=== PATIENT | female | born 1985 | race Caucasian/White ===

== ENCOUNTER → 2021-09-03 09:57 | Outpatient (CLI) | payer BC, SELFPAY ==
--- NOTE | ~2021-09-03 | US_ITS ---
EXAMINATION: US OB follow up DATE: 09/03/2021 10:23 INDICATION: Gestational diabetes, growth assessment during third trimester TECHNIQUE: Real-time ultrasound of the pelvis was performed. The interpreting radiologist was not pre sent for the study. COMPARISON: None. FINDINGS: There is a single living fetus in vertex presentation. The placenta is fundal/posterior. Fe ankush cardiac activity and movement are noted. heart rate is 136 beats per minute (bpm). Th e amniotic fluid index is 12.5 cm which is normal (normal range: 8.1 cm to 24.8 cm). The following biometric data were obtained: Biparietal diameter (BPD): 9.0 cm; head circumference (HC): 32.6 cm; abdominal circumference (AC): 32 .8 cm; femur length (FL): 6.7 cm. These measurements are concordant. Estimated weight is 2876 g +/- 431 g, which correlates with the 86th percentile when 10/10/2021 i s used as estimated date of delivery. As single measurements, these parameters are each equal to the following estimated gestational ages w ith ranges of +/- 2 standard deviations: BPD: 36 weeks 3 days ( 33 weeks 2 days - 39 weeks 5 days). HC: 37 weeks 1 days ( 34 weeks 3 days - 39 weeks 5 days). AC: 36 weeks 5 days ( 33 weeks 5 days - 39 weeks 6 days). FL: 34 weeks 4 days ( 31 weeks 4 days - 37 weeks 4 days). estimated gestational age based solely on measurements from this exam is 36 weeks 2 days +/- 2 weeks 4 days. IMPRESSION: 1. Single living fetus in vertex presentation. 2. Normal amniotic fluid index. 3. Estimated weight is 2876 g +/- 431 g, which correlates with the 86th percentile when 2 is used as estimated date of delivery. Reviewed, dictated and finalized at location F. ORTHINESS SAFETY INSPECTOR IMPRESSION: 1. Single living fetus in vertex presentation. 2. Normal amniotic fluid index. 3. Estimated weight is 2876 g +/- 431 g, which correlates with the 86th p ercentile when 10/10/2021 is used as estimated date of delivery.
== END ==
PROVIDERS: Visit Provider Obstetrics & Gynecology Gynecology
DX: Z36.89 Encounter for other specified antenatal screening (principal)
CPT/HCPCS: 76816

== ENCOUNTER 2021-09-29 17:21 | Outpatient (RCR) | payer BC, SELFPAY ==
[2021-08-18 19:37] VITALS: BP 130/68; PULSE 85
[2021-08-22 18:57] VITALS: BP 120/68; PULSE 87
[2021-08-25 14:48] VITALS: BP 133/61; PULSE 78
[2021-08-29 16:15] VITALS: BP 124/71; PULSE 93
[2021-08-29 16:20] VITALS: BP 124/71; PULSE 96
[2021-09-01 16:52] VITALS: BP 121/70; PULSE 85
[2021-09-08 18:54] VITALS: BP 124/79; PULSE 91
[2021-09-15 17:34] VITALS: BP 123/67; PULSE 95
[2021-09-19 17:40] VITALS: BP 119/69; PULSE 93
[2021-09-22 17:39] VITALS: BP 131/82; PULSE 81
[2021-09-26 17:43] VITALS: BP 117/64; PULSE 86
[2021-09-29 17:57] VITALS: BP 124/73; PULSE 81
== END 2021-10-15 13:12 | disposition home or self-care (01) ==
LOC: ANHOBOP 17:21
PROVIDERS: PCP Family Medicine; Visit Provider Obstetrics & Gynecology Gynecology
DX: O24.419 Gestational diabetes mellitus in pregnancy, unspecified control (principal); Z3A.32 32 weeks gestation of pregnancy; Z3A.33 33 weeks gestation of pregnancy; Z3A.34 34 weeks gestation of pregnancy; Z3A.35 35 weeks gestation of pregnancy; Z3A.36 36 weeks gestation of pregnancy; Z3A.37 37 weeks gestation of pregnancy; Z3A.38 38 weeks gestation of pregnancy
CPT/HCPCS: 59025

== ENCOUNTER 2021-10-03 01:59 | Inpatient (IN) | payer BC, SELFPAY ==
[2021-10-03] VITALS (83 sets, daily range): BP systolic 105–147; BP diastolic 55–114; PULSE 68–106; RESP 18–20; TEMP 36.7–37.2; O2SAT 91–100; BMI 29.5
[2021-10-03 02:37] LABS: Glucose Point of Care 81 mg/dl (65-105)
[2021-10-03 02:39] LABS: Basophils Percent Auto 0.3 % (0.2-1.2); Eosinophils Absolute Auto 0.1 K/mm3 (0-0.3); Eosinophils Percent Auto 0.8 % (0-4.4); Hematocrit 39.1 % (37.0-47.0); Hemoglobin 13.5 g/dL (12.0-15.0); Immature Granulocyte Absolute 0.06 K/mm3 (0.00-0.031); Immature Granulocyte Percent A 0.6 % (0-0.5); Lymphocytes Absolute Auto 2.44 K/mm3 (0.9-3.2); Mean Corpuscular HGB Conc 34.5 g/dl (32-36); Mean Corpuscular Hemoglobin 33.3 pg (26-34); Mean Corpuscular Volume 96.5 fl (80-100); Mean Platelet Volume 10.2 fl (7.4-10.4); Monocytes Absolute Auto 0.9 K/mm3 (0.1-0.6); Neutrophils Absolute Auto 7.1 K/mm3 (1.3-6.7); Neutrophils Percent Auto 67.3 % (45.5-73.1); Platelet Count Result 228 k/mm3 (150-375); Red Blood Count 4.05 M/mm3 (4.2-5.4); Red Cell Distribution Width 12.9 % (11.5-14.5); White Blood Count 10.6 K/mm3 (4.5-10.0)
[2021-10-03] MEDS: LACTATED RINGERS 1,000 ML 125 ML IV CONT ×3 (02:40→06:21)
--- NOTE | 2021-10-03 03:21 | WPDANESEPP ---
Anes - Eval Pre Procedure Date/Time: 10/03/21 03:21 Pre Op Diagnosis: Induction Patient Data Age: 35 Gender: F Height: 1.68 m Weight: 83 kg Last Vital Signs Pulse 82 10/03/21 02:15 BP 144/88 H 10/03/21 02:15 Pulse Ox 100 10/03/21 03:21 Allergies Allergy/AdvReac Type Severity Reaction Status Date / Time No Known Allergies Allergy Verified 10/03/21 02:41 Home Medications Medication Instructions Recorded Confirmed Type PNV cmb#95-ferrous fumarate-FA 1 tablet PO DAILY 05/10/19 10/03/21 History [] cholecalciferol (vitamin D3) 5,000 unit PO DAILY 05/10/19 10/03/21 History [Vitamin D3] omega 5-hvp-wbe-fish oil [Fish Oil] 1 cap PO DAILY 05/10/19 10/03/21 History folic acid 1 mg tablet 1 mg PO DAILY 03/07/21 10/03/21 History aspirin [Baby Aspirin] 81 mg PO DAILY 09/15/21 10/03/21 History insulin NPH human semi-syn 24 unit SUBCUT HS 09/15/21 10/03/21 History [Novolin N (Semi-Synthetic)] insulin aspart U-100 [Novolog 11 unit SUBCUT QACDINNER 09/15/21 10/03/21 History U-100 Insulin aspart] Laboratory Tests 10/03/21 10/03/21 10/03/21 02:22 02:30 02:30 WBC 10.6 K/mm3 H K/mm3 (4.5-10.0) RBC 4.05 M/mm3 L M/mm3 (4.2-5.4) Hgb 13.5 g/dL g/dL (12.0-15.0) Hct 39.1 % % (37.0-47.0) MCV 96.5 fl fl (80-100) MCH 33.3 pg pg (26-34) MCHC 34.5 g/dl g/dl (32-36) RDW 12.9 % % (11.5-14.5) Plt Count 228 k/mm3 k/mm3 (150-375) MPV 10.2 fl fl (7.4-10.4) Immature Gran % (Auto) 0.6 % H % (0-0.5) Neut % (Auto) 67.3 % % (45.5-73.1) Lymph % (Auto) 23.0 % % (18.3-44.2) [place] % (Auto) 8.0 % % (2.6-8.5) Eos % (Auto) 0.8 % % (0-4.4) Baso % (Auto) 0.3 % % (0.2-1.2) Lymph # (Auto) 2.44 K/mm3 K/mm3 (0.9-3.2) [place] # (Auto) 0.9 K/mm3 H K/mm3 (0.1-0.6) Eos # (Auto) 0.1 K/mm3 K/mm3 (0-0.3) Baso # (Auto) 0.0 K/mm3 K/mm3 (0.0-0.1) Abs Immat Gran (auto) 0.06 K/mm3 H K/mm3 (0.00-0.031) Absolute Neuts (auto) 7.1 K/mm3 H K/mm3 (1.3-6.7) Absolute Nucleated RBC 0.0 K/mm3 K/mm3 (0.0-0.012) Nucleated RBC % 0.0 % % (0.0-0.2) POC Capillary Glucose 81 mg/dl mg/dl (65-105) RPR Pending Patient hx anesthesia problems: none Family hx anesthesia problems: none Results Review: All pre-operative results and documents have been reviewed as part of the pre-operative evaluation. [facility] Past Medical History Medical History Gestational diabetes mellitus (GDM) History of asthma History of gestational diabetes Major depressive disorder in full remission Scoliosis of lumbar spine Vitamin D deficiency Surgical History Surgical History [place] teeth extracted 01/2008 Family History Family History Mother Dementia Asthma Sibling Asthma Grandparent Heart attack Father Heart problem Grandparent Ovarian cancer Grandparent Acute rheumatic heart disease Social History Social History Smoking status: Never smoker Second hand tobacco smoke exposure: No Alcohol intake: current Substance use: never Substance use type: does not use Gender identity (if verbalized by the patient): Female Spiritual care concerns: No Exam Day of Procedure 10/03/21 03:21 Patient weight: overweight Heart: regular rate and rhythm Lungs: clear to auscultation Airway: Mallampati scale class II Neurological: alert and oriented
--- NOTE | 2021-10-03 04:52 | LDADM ---
This patient, Love Hernandez, was admitted to Labor/Delivery/Recovery 104 on 10/03/21 at 01:59. Plans for labor, pain management and were discussed with patient. Patient/family oriented to hospital policies and general routines including ID bracelet, bed and alarms, visiting hours, pain management, procedures, bathroom and other care routines, personal items, smoking policy, room service/diet and guest tray routines, infant security routines, and visiting hours. Patient/Family are encouraged to report perceived risks to care and to ask questions if they do not understand what they are told or what they should do. See OBIX for further documentation.
[2021-10-03 06:34] LABS: Glucose Point of Care 111 mg/dl (65-105)
--- NOTE | 2021-10-03 06:38 | WPDOBADMIT ---
Obstetrics - Admit Note Admission Note: record reviewed. No pertinent additions to the history and/or any subsequent changes in the physical findings that are not consistent with the expected course of the were found. Additions to the history and/or subsequent changes in the physical findings follow. None. Here with SROM in labor. Now complete and starting to push.
--- NOTE | 2021-10-03 07:03 | PM.OBPRVD ---
OB - Delivery Note Procedure Delivery date: 10/03/21 Procedure: Events: Gestational Diabetes (A2) and Other (Covid+ in ) Induction method: None Delivery augmentation: Pitocin Delivery monitor: External FHT and External Uterine Route of delivery: Laceration Description: Perineal - 2nd Degree Delivery repair: vicryl (2-0) Specimen: No Quantitative Blood Loss (ml): 100 Anesthesia type: Epidural Disposition: Floor Baby Date of : 10/03/21 Weeks of gestation at delivery: 39 Infant gender: Male presentation: vertex position: Right Occiput Anterior Placenta delivery description: Spontaneous Cord Vessel Description: 3 Vessels score one minute: 9 score five minutes: 9
--- NOTE | 2021-10-03 07:05 | PM.OBDSVD ---
DS: Admitting Diagnosis Discharge Date 10/04/21 Admitting Diagnosis IUP 39 wks with SROM in labor GDMA2 Covid + in DS: Discharge Diagnosis Discharge Diagnosis (1) Gestational diabetes mellitus (GDM): Code(s): O24.419 - Gestational diabetes mellitus in , unspecified control Status: Acute Assessment and Plan: A2 (2) (normal spontaneous vaginal delivery): Code(s): O80 - Encounter for full-term uncomplicated delivery Status: Acute OB - DS: Summary OB Procedures : NST and Ultrasound OB Procedures Intrapartum: Spontaneous Vag Delivery OB Procedures: : None Peripartum Data Infant Delivery Method: Natural Vaginal Laceration Description: Perineal - 2nd Degree complications: none Status at Discharge Functional status at discharge: independent ambulation Overall status at discharge: patient is progressing back to baseline Time Spent with Patient Time attestation: Total time spent providing and/or coordinating discharge services: DS: Data Data Completed and Pending Labs on day of discharge: Labs from last 24 hours 10/03/21 10/03/21 10/03/21 06:27 02:30 02:30 WBC RBC Hgb Hct MCV MCH MCHC RDW Plt Count MPV Immature Gran % (Auto) Neut % (Auto) Lymph % (Auto) [place] % (Auto) Eos % (Auto) Baso % (Auto) Lymph # (Auto) [place] # (Auto) Eos # (Auto) Baso # (Auto) Abs Immat Gran (auto) Absolute Neuts (auto) Absolute Nucleated RBC Nucleated RBC % POC Capillary Glucose 111 H RPR Pending Blood Type O Positive Antibody Screen Negative 10/03/21 10/03/21 02:30 02:22 WBC 10.6 H RBC 4.05 L Hgb 13.5 Hct 39.1 MCV 96.5 MCH 33.3 MCHC 34.5 RDW 12.9 Plt Count 228 MPV 10.2 Immature Gran % (Auto) 0.6 H Neut % (Auto) 67.3 Lymph % (Auto) 23.0 [place] % (Auto) 8.0 Eos % (Auto) 0.8 Baso % (Auto) 0.3 Lymph # (Auto) 2.44 [place] # (Auto) 0.9 H Eos # (Auto) 0.1 Baso # (Auto) 0.0 Abs Immat Gran (auto) 0.06 H Absolute Neuts (auto) 7.1 H Absolute Nucleated RBC 0.0 Nucleated RBC % 0.0 POC Capillary Glucose 81 RPR Blood Type Antibody Screen Discharge Plan Discharge Attending physician on discharge: Natalie Guzman Discharging Clinician: Natalie Guzman Anticipated Discharge Date/Time: 10/05/21 07:06 Patient Disposition: Home, Self-Care Activity: may shower and pelvic rest Diet: regular Patient Instructions: Antibiotic Form Stand Alone Forms: General Discharge Information Follow-up/Referrals: Natalie Guzman MD [Physician] - 6 Weeks Discharge Medications: Continued PNV cmb#95-ferrous fumarate-FA [] 28 mg iron- 800 mcg Tablet 1 tablet PO DAILY RF: 0 cholecalciferol (vitamin D3) [Vitamin D3] 5,000 unit Tablet 5,000 unit PO DAILY RF: 0 omega 6-mmy-vyn-fish oil [Fish Oil] 1,000 mg (120 mg-180 mg) Capsule 1 cap PO DAILY RF: 0 Discontinued folic acid 1 mg tablet 1 mg PO DAILY RF: 0 insulin aspart U-100 [Novolog U-100 Insulin aspart] 100 unit/mL Solution 11 unit SUBCUT QACDINNER RF: 0 aspirin [Baby Aspirin] 81 mg Tablet,Chewable 81 mg PO DAILY RF: 0 Novolin N (Semi-Synthetic) 100 unit/mL Suspension 24 unit SUBCUT HS RF: 0 Date of admission: 10/03/21 01:59 Primary Care Provider: UNKNOWN,DOCTOR Admitting Provider: Natalie Guzman Attending physician on admission: Natalie Guzman Condition: Stable
[2021-10-03] MEDS: OXYTOCIN 30 UNITS/NS 500 ML 30 UNITS/500 ML BAG 125 UNITS IV CONT (07:14)
--- NOTE | 2021-10-03 10:27 | OBPPTRN ---
Patient transferred to post room #291 via wheelchair. Support person present. Oriented to unit, room, information board, rooming in, admission packet and security measures. Patient verbalizes understanding.
[2021-10-03] MEDS: ACETAMINOPHEN 325 MG TABLET 650 MG PO (12:02)
[2021-10-03 13:00] LABS: Rapid Plasma Reagin Non-Reactive (NonReactive)
--- NOTE | 2021-10-03 14:40 | PC.NURSE ---
[id number] Reported to RN that mother wants to pump and feed her . Introductions were made and consulted with patient to assess needs related to . Mother led conversation with her experience with feeding baby so far and her plan to breastfeed. Mother works well with her . Reviewed good handwashing when working with infant, breast, nipples and how to protect the nipples with a deep latch. Encouraged understanding the benefits of skin to skin, responding to feeding cues, frequencies of feeding 8-12 times in 24 hours (approximately 2-3 hours), duration of feedings, milk production, intake/output feeding sheet and signs of adequate intake. Discussed stimulating infant with skin to skin, hand expressing colostrum, touch and talking to to encourage eating at the breast. Reviewed positioning and alignment, supporting breast, off-centered (asymmetrical latch) and leading with the chin with big open wide gape. is sleepy and reluctant. Mother hand expressed colostrum and finger fed to her infant. Nipple care reviewed, comfort and healing with warm, wet washcloth to rinse breast and leave to air-dry, or colostrum may be left on nipples to dry but have clean hands when touching the nipple/breast. Resources used to facilitate learning were used from the visual handout/ tool/mom and baby guide. Mother voiced understanding responding to feeding cues, may need to stimulating infant approximately 2-3 hours from the start of the last feeding, calling for assistance if the does not latch or there discomfort . Reported to primary RN. 1217 - Parents called RN to the room related to has not shown feeding cues to breastfeed yet since 0715. Mother hand expressed colostrum and RN 1.3 ml syringe fed . Infant remains sleepy and reluctant. Parents are encouraged to practice skin to skin, hand expression, stimulating infant 8-12 times in a 24 hour period to encourage . Parents voiced understanding to call if infant doesn't latch or there's discomfort with latching infant to the breast. Reported to primary RN.
[2021-10-03] MEDS: IBUPROFEN 600 MG TABLET PO (16:16)
[2021-10-03] MEDS: WITCH HAZEL 40 PADS 1 PAD TOPICAL (16:26)
[2021-10-03] MEDS: BENZOCAINE 20% AER SPR (*SP) 56 GM CAN 1 SPRAY TOPICAL (16:26)
[2021-10-04 02:25] VITALS: BP 129/76; PULSE 81; RESP 20; TEMP 36.6
[2021-10-04 05:41] LABS: Hematocrit 33.2 % (37.0-47.0); Hemoglobin 11.3 g/dL (12.0-15.0)
--- NOTE | 2021-10-04 07:56 | PM.OBPNVD ---
OB - PN: Subj Subjective Date/time seen: 10/04/21 07:56 Patient comments: no complaints and pain well controlled baby status: doing well OB - PN: Obj Data Labs CBC & Chem 7: 10/04/21 05:05 Labs: Laboratory Results - last 24 hr 10/03/21 10/04/21 02:30 05:05 Hgb 11.3 L Hct 33.2 L RPR Non-reactive OB - PN A/P Plan day: 1 Plan: routine care, discharge home, follow up 6 weeks and other (plans paragard) Time Spent With Patient Time: Total time spent is greater than 50% in coordination of care (as documented) at patient's floor/unit and/or counseling patient: Exam : Bimanual exam- vagina & uterus: other (Uterus firm, nt @U)
[2021-10-04 08:05] VITALS: BP 104/63; PULSE 94; RESP 18; TEMP 36.7; O2SAT 98
--- NOTE | 2021-10-04 10:00 | WPDANLDPN2 ---
Anes-Prog Note L&D Date/Time: 10/04/21 10:00 Comfortable throughout: labor and delivery Neuraxial method: epidural Epidural/Spinal procedure site: clean & non-tender Neuro status: Neuro function grossly intact. Cardiovascular status: normal Respiratory status: normal Airway patency: baseline Mental status: baseline Post-Op hydration status: normal Vital Signs: Last Vital Signs Temp 98.1 F 10/04/21 08:05 Pulse 94 10/04/21 08:05 Resp 18 10/04/21 08:05 BP 104/63 10/04/21 08:05 Pulse Ox 98 10/04/21 08:05 Pain score (VAS): 0 I/O: Intake & Output 10/03/21 10/04/21 10/04/21 23:59 07:59 15:59 Intake Total 240 Balance 240 Post-procedural complaints: none Patient feedback: Patient satisfied with anesthetic care.
[2021-10-04] MEDS: DOCUSATE SODIUM 100 MG CAPSULE PO (10:02)
[2021-10-04] MEDS: MULTIVIT/MIN/PREN/FOL AC/IRON TABLET 1 TAB PO (10:02)
--- NOTE | 2021-10-04 17:14 | PC.NURSE ---
1030 - Consulted with patient, reviewed infant feeding cues, frequencies, duration of feedings, feeding elimination flow sheet, and signs of adequate intake. Demonstrated stimulation techniques to wake infant for feeding. Assisted with infant to breast. Reviewed positioning/alignment, holding breast and asymmetrical latch on. was unable to latch correctly and father of baby was feeding colostrum with a syringe. Reviewed signs of a correct latch, effective nursing and suck swallow ratio. Nipple care reviewed with optimal latching and good positioning. Mother voiced understanding to call out for RN assistance if she is unable to latch infant for feeding or she has discomfort with nursing. Parent voiced understanding of responsive feeding watching for feeding cues and stimulating infant to breastfeed if it has been 3 hours since the infant last fed. Reported to primary RN.
[2021-10-05 07:52] VITALS: BP 133/79; PULSE 79; RESP 16; TEMP 36.9; O2SAT 97
== END 2021-10-04 16:36 | disposition home or self-care (01) | DRG 807 ==
LOC: ANHLDR 07:06 → ANHOB2 10:28
PROVIDERS: Admitting Provider Obstetrics & Gynecology Gynecology; Visit Provider Obstetrics & Gynecology Gynecology
DX: O24.429 Gestational diabetes mellitus in childbirth, unspecified control (principal); Z37.0 Single live birth; Z3A.39 39 weeks gestation of pregnancy; O70.1 Second degree perineal laceration during delivery; O99.892 Other specified diseases and conditions complicating childbirth; M41.9 Scoliosis, unspecified; Z86.16 Personal history of COVID-19
CPT/HCPCS: 36415; 82948; 85014; 85018; 85025; 86592; 86850; 86900; 86901; A9270; J2590; J2795; J7120

== ENCOUNTER 2023-02-05 17:13 | Outpatient (RCR) | payer BC, SELFPAY | END 2023-05-06 23:59 | disposition home or self-care (01) | LOC: ANHLAB 17:13 | PROVIDERS: Visit Provider Obstetrics & Gynecology Gynecology | DX: O26.21 Pregnancy care for patient with recurrent pregnancy loss, first trimester (principal); Z3A.00 Weeks of gestation of pregnancy not specified | CPT/HCPCS: 36415; 84702 ==

== ENCOUNTER → 2023-02-17 09:49 | Outpatient (CLI) | payer BC, SELFPAY ==
--- NOTE | ~2023-02-17 | US_ITS ---
EXAMINATION: US OB <= 14 weeks fetus DATE: 02/17/2023 10:11 INDICATION: Uncertain dates. . TECHNIQUE: Real-time transabdominal pelvic ultrasound was performed. COMPARISON: None. FINDINGS: The uterus measures 10.9 x 6.5 x 9.5 cm. There is an intrauterine gestational sac. A yolk sac is iden tified. The crown rump length measures 1.7 cm, which correlates with an estimated gestational age of 8 weeks and 0 day(s) (+/-) 5 day(s). heart motion is identified measuring 160 beats per minute (bpm) by M-mode Doppler. The right ovary measures 2.8 x 2.4 x 3.0 cm. The left ovary is not vi sualized. There is no free fluid in the pelvis. IMPRESSION: 1. Single living intrauterine gestation with estimated date of delivery of 09/29/2023. Reviewed, dictated and finalized at location E. IMPRESSION: 1. Single living intrauterine gestation with estimated date of delivery of 09/07.
== END ==
PROVIDERS: PCP Obstetrics & Gynecology Gynecology; Visit Provider Obstetrics & Gynecology Gynecology
DX: Z36.87 Encounter for antenatal screening for uncertain dates (principal); Z3A.08 8 weeks gestation of pregnancy
CPT/HCPCS: 76801

== ENCOUNTER 2023-03-28 17:08 | Outpatient (CLI) | payer BC, SELFPAY ==
[2023-03-28 17:58] LABS: Basophils Percent Auto 0.3 % (0.2-1.2); Eosinophils Absolute Auto 0.1 K/mm3 (0-0.3); Eosinophils Percent Auto 1.4 % (0-4.4); Hemoglobin 11.6 g/dL (12.0-15.0); Immature Granulocyte Absolute 0.02 K/mm3 (0.00-0.031); Immature Granulocyte Percent A 0.3 % (0-0.5); Lymphocytes Absolute Auto 1.96 K/mm3 (0.9-3.2); Lymphocytes Percent Auto 33.4 % (18.3-44.2); Mean Corpuscular HGB Conc 35.2 g/dl (32-36); Mean Corpuscular Hemoglobin 32.8 pg (26-34); Mean Corpuscular Volume 93.2 fl (80-100); Mean Platelet Volume 9.8 fl (7.4-10.4); Monocytes Absolute Auto 0.4 K/mm3 (0.1-0.6); Monocytes Percent Auto 7.3 % (2.6-8.5); Neutrophils Absolute Auto 3.4 K/mm3 (1.3-6.7); Neutrophils Percent Auto 57.3 % (45.5-73.1); Platelet Count Result 261 k/mm3 (150-375); Red Blood Count 3.54 M/mm3 (4.2-5.4); Red Cell Distribution Width 12.3 % (11.5-14.5); White Blood Count 5.9 K/mm3 (4.5-10.0)
[2023-03-28 18:39] LABS: Vitamin D 25 Hydroxy 73.9 ng/mL
[2023-03-28 18:50] LABS: HIV 1/2 Ab P24 Ag Result Negative (Negative)
[2023-03-28 19:03] LABS: Hepatitis B Surface Antigen Negative (Negative); Rubella IgG Antibody 37.7 IU/ML
[2023-03-28 19:06] LABS: Hepatitis C Virus Antibody Negative (Negative)
[2023-03-28 23:08] LABS: Hemoglobin A1C 4.8 % (<5.7)
[2023-03-29 15:39] LABS: Rapid Plasma Reagin Non-Reactive (NonReactive)
== END 2023-03-28 17:09 | disposition home or self-care (01) ==
LOC: ANHLAB 17:10
PROVIDERS: PCP Obstetrics & Gynecology Gynecology; Visit Provider Advanced Practice Midwife
DX: Z36.9 Encounter for antenatal screening, unspecified (principal); Z3A.00 Weeks of gestation of pregnancy not specified
CPT/HCPCS: 36415; 82306; 82728; 83036; 85025; 86592; 86703; 86762; 86803; 86850; 86900; 86901; 87340; G0432

== ENCOUNTER 2023-08-24 20:17 | Inpatient (IN) | payer BC, SELFPAY ==
[2023-08-07 16:52] VITALS: BP 119/69; PULSE 96
[2023-08-11 10:33] VITALS: BP 114/80; PULSE 105
--- NOTE | 2023-08-14 17:47 | PC.NURSE ---
called Dr. Guzman reported pt is here for routine NST and undetermined baseline with questionable decel. order received for BPP and SADIA.
[2023-08-14 18:58] VITALS: BP 123/70; PULSE 90
[2023-08-17 18:24] VITALS: BP 122/64; PULSE 93
[2023-08-21 17:51] VITALS: BP 120/71; PULSE 95
--- NOTE | ~2023-08-24 | US_ITS ---
EXAMINATION: US OB limited w BPP DATE: 09/09/2023 23:41 INDICATION: well-being. Third trimester. TECHNIQUE: Real-time pelvic ultrasound was performed. COMPARISON: None. FINDINGS: There is a single living fetus in vertex presentation. The placenta is anterior. heart rate is 133 beats per minute (bpm). The amniotic fluid volume is subjectively normal. Biophysical profile performed by the technologist: breathing (30 sec sustained breathing in 30 minutes): 0 out of 2 movement (3 gross body movements in 30 minutes): 2 out of 2 tone (one episode of wvfgdjr-kyuvdzhex-zidmfms limb movement): 2 out of 2 Amniotic fluid pocket (2 cm): 2 out of 2 Total score: 6 out of 8 IMPRESSION: 1. Single living fetus in vertex presentation. 2. Biophysical profile 6 out of 8. Reviewed, dictated and finalized at location E. COMPOUNDER
--- NOTE | ~2023-08-24 | US_ITS ---
EXAMINATION: US OB limited w BPP DATE: 08/14/2023 18:49 INDICATION: QUESTIONABLE DECELS . TECHNIQUE: Real-time ultrasound of the pelvis was performed. COMPARISON: None. FINDINGS: There is a single living fetus in upper back/spine (shoulder) presentation, transverse lie. The plac enta is anterior, well distant from the cervix which is closed and measures 4.9 cm. heart rate is 126 bpm. The amniotic fluid index is 20.8 cm, which is normal (5th to 95th percentile is 8.3 to 24 .5 cm). Biophysical profile performed by the technologist: breathing (30 sec sustained breathing in 30 minutes): 2 out of 2. movement (3 gross body movements in 30 minutes: 2 out of 2. tone (one episode of wqindkm-fwxgxbjod-kvxpliz limb movement): 2 out of 2. Amniotic fluid pocket (2 cm): 2 out of 2. Total score: 8 out of 8. IMPRESSION: Single living fetus in shoulder presentation, transverse lie. Biophysical profile 8 out of 8. Reviewed, dictated and finalized at location K. L FILER
--- NOTE | ~2023-08-24 | US_ITS ---
EXAMINATION: US OB BPP wo non-stress DATE: 08/24/2023 18:59 INDICATION: deceleration; Add SADIA please . TECHNIQUE: Real-time ultrasound of the pelvis was performed. COMPARISON: None. FINDINGS: There is a single living fetus in vertex presentation, longitudinal lie. The placenta is anterior/ri ght. heart rate is 136 bpm. The amniotic fluid index is 10.8 cm, which is normal (5th to 95th p ercentile is 8.1 to 24.8 cm). Biophysical profile performed by the technologist: breathing (30 sec sustained breathing in 30 minutes): 0 out of 2. movement (3 gross body movements in 30 minutes: 2 out of 2. tone (one episode of kyoszdm-pxpwpiyyh-qmyhpnj limb movement): 2 out of 2. Amniotic fluid pocket (2 cm): 2 out of 2. Total score: 8 out of 8. IMPRESSION: Single living fetus in vertex presentation. Biophysical profile 6 out of 8. . Reviewed, dictated and finalized at location K. ING ANALYST
--- NOTE | ~2023-08-24 | US_ITS ---
EXAMINATION: US OB BPP wo non-stress DATE: 09/09/2023 11:19 INDICATION: Decelerations. Third trimester. TECHNIQUE: Real-time ultrasound of the pelvis was performed. COMPARISON: Ultrasound 09/08/2023 FINDINGS: There is a single living fetus in vertex presentation. The placenta is anterior. heart rate is 145 beats per minute (bpm). The amniotic fluid index is 12.0 cm, which is normal. Biophysical profile performed by the technologist: breathing (30 sec sustained breathing in 30 minutes): 2 out of 2 movement (3 gross body movements in 30 minutes): 2 out of 2 tone (one episode of rwsvcfp-gupupyydh-bjswzpe limb movement): 2 out of 2 Amniotic fluid pocket (2 cm): 2 out of 2 Total score: 8 out of 8 IMPRESSION: 1. Single living fetus in vertex presentation. 2. Biophysical profile 8 out of 8. Reviewed, dictated and finalized at location A. CTOR TARGETED MARKETING
--- NOTE | ~2023-08-24 | US_ITS ---
EXAMINATION: US umbilical doppler DATE: 08/25/2023 09:07 INDICATION: cardiac decelerations. Maternal gestational diabetes. TECHNIQUE: Real-time ultrasound of the pelvis was performed. The interpreting radiologist was not pre sent for the study. COMPARISON: 08/24/2023 FINDINGS: There is a single living fetus in vertex presentation. The placenta is anterior. heart rate is 157 beats per minute (bpm). The umbilical artery demonstrates a peak systolic and diastolic velocity ratio of 2.3 at the fetus, 1.8 in the mid cord and 1.5 near the placenta (5th%-95%: 2.0-3.5 at 34 we eks). IMPRESSION: 1. Single living fetus in vertex presentation with heart rate of 157 bpm. 2. Umbilical artery peak systolic to diastolic velocity ratios of 1.5-2.3, which are at to slightly b elow the normal range for 34 week gestational age of 2.0-3.5. Reviewed, dictated and finalized at location A. NEWS DIRECTOR IMPRESSION: 1. Single living fetus in vertex presentation with heart rate of 157 bpm . 2. Umbilical artery peak systolic to diastolic velocity ratios of 1.5-2.3, whic h are at to slightly below the normal range for 34 week gestational age of 2.0- 3.5.
--- NOTE | ~2023-08-24 | US_ITS ---
EXAMINATION: US OB BPP wo non-stress DATE: 09/10/2023 08:09 INDICATION: Decelerations. Third trimester. TECHNIQUE: Real-time pelvic ultrasound was performed. COMPARISON: Ultrasound 09/09/2023 FINDINGS: There is a single living fetus in vertex presentation. The placenta is anterior. heart rate is 152 beats per minute (bpm). Biophysical profile performed by the technologist: breathing (30 sec sustained breathing in 30 minutes): 2 out of 2 movement (3 gross body movements in 30 minutes): 2 out of 2 tone (one episode of xyaasrw-ajsiuirde-pjqkdtu limb movement): 2 out of 2 Amniotic fluid pocket (2 cm): 2 out of 2 Total score: 8 out of 8 IMPRESSION: 1. Single living fetus in vertex presentation. 2. Biophysical profile 8 out of 8. Reviewed, dictated and finalized at location E. PRINTS TRIMMER
--- NOTE | ~2023-08-24 | US_ITS ---
EXAMINATION: US OB BPP wo non-stress DATE: 09/08/2023 09:12 INDICATION: Decelerations. Third trimester. TECHNIQUE: Real-time pelvic ultrasound was performed. COMPARISON: Ultrasound 08/25/2023 FINDINGS: There is a single living fetus in vertex presentation. The placenta is anterior. heart rate is 124 beats per minute (bpm). The amniotic fluid index is 16.2 cm, which is normal. Biophysical profile performed by the technologist: breathing (30 sec sustained breathing in 30 minutes): 2 out of 2 movement (3 gross body movements in 30 minutes): 2 out of 2 tone (one episode of iajekvv-evorvqsfc-wpczfov limb movement): 2 out of 2 Amniotic fluid pocket (2 cm): 2 out of 2 Total score: 8 out of 8 IMPRESSION: 1. Single living fetus in vertex presentation. 2. Biophysical profile 8 out of 8. Reviewed, dictated and finalized at location A. EACH LIAISON
[2023-08-24 17:54] VITALS: BP 110/71; PULSE 97
--- NOTE | 2023-08-24 19:05 | PC.NURSE ---
Spoke to Dr. Guzman regarding results of BPP. BPP 12/14. No breathing noted for 30 seconds total in 30 min time frame. Noted that a few single breaths were seen, not 30 seconds long. Orders from Dr. Guzman to keep FHR monitor and toco on for 30 min. Report if any decels are noted during that time frame. Orders for NST to be repeated tomorrow and to perform kick counts at home. Patient verbalizes understanding.
--- NOTE | 2023-08-24 20:04 | PC.NURSE ---
Spoke with Dr. Guzman regarding NST strip post BPP. One late decel noted. Multiple accelerations present following the decel. Recommendation per Dr. Guzman is for patient to be monitored continuously overnight with external monitors and will follow up with rounding in the AM. Patient verbalizes understanding.
[2023-08-24 20:41] VITALS: RESP 18; TEMP 36.3; BMI 30.6
[2023-08-24 20:43] VITALS: BP 141/77; PULSE 82
[2023-08-24 20:44] VITALS: PULSE 80; O2SAT 99
--- NOTE | 2023-08-24 20:44 | ADMGEN ---
This patient, Love Hernandez, was admitted to OB Post 115-00. Patient/family oriented to hospital policies and general routines including ID bracelet, bed and alarms, visiting hours, pain management, procedures, bathroom and other care routines, personal items, smoking policy, room service/diet, and visiting hours. Information on how to activate the Rapid Response Team has been discussed. Patient/Family are encouraged to report perceived risks to care and to ask questions if they do not understand what they are told or what they should do.
--- NOTE | 2023-08-24 21:10 | PC.NURSE ---
Spoke with Dr. Guzman at 0853 regarding home medication orders. Will reorder all home meds. Orders to check blood sugars 1 hour post meals and fasting x1 in AM. HS insulin ordered for tonight. Patient states she will eat dinner soon.
[2023-08-24] MEDS: INSULIN HUMAN NPH (*BKC) 100 UNITS/ML 32 UNITS SUB-Q (22:25)
[2023-08-24 22:30] LABS: Glucose Point of Care 96 mg/dl (65-105)
--- NOTE | 2023-08-24 22:38 | PC.NURSE ---
FHR from [id number]: baseline-125 with acclerations. no decels noted. Uterine irritability noted x1 during this time frame. At 2021 patient was moved to an overnight observation room. Patient was up to bathroom and changed into gown during this time. Was placed back on external monitors at 2016. From [id number] FHR baseline was 135 with no decels or accels. No contractions noted during this time period. See OBIX charting for additional strip.
[2023-08-25] VITALS (16 sets, daily range): BP systolic 98–134; BP diastolic 52–77; PULSE 72–103; RESP 16–20; TEMP 36.2–36.7; O2SAT 98–100
--- NOTE | 2023-08-25 04:18 | PC.NURSE ---
At 2253 on 08/24/23, spoke with Dr. Guzman regarding patients daily/nightly medication orders. All home meds to be reordered during hospital observation stay. Nightly home insulin dose of 32 units ordered and to be given tonight. Vital signs q4 hours and blood glucose to be checked 1X fasting daily and 1 hour PP.
[2023-08-25 05:23] LABS: Glucose Point of Care 87 mg/dl (65-105)
--- NOTE | 2023-08-25 09:53 | WPDOBADMIT ---
Obstetrics - Admit Note Admission Note: record reviewed. Pertinent additions to the history and/or any subsequent changes in the physical findings that are not consistent with the expected course of the were found. Additions to the history and/or subsequent changes in the physical findings follow. Here yesterday afternoon for scheduled NST and noted to have decel. BPP 6/8 (-2 for breathing,had episodes of breathing but not meeting criteria). Fluid normal. Decel again when returned from u/s. Kept overnight and random decels 30-120 sec. No complaints. Good FM. accuchecks good range Abdomen-soft, nt 1. IUP 34 10/13 2. GDMA2-continue diet, insulin, and accuchecks 3. Decelerations-random with normal reactive tracing between -dopplers this am slighly low, normal fluid, had good breathing this am -plan continuous monitoring -if decel free for 24 hours, will send home -if decels continue will plan early delivery at about 37 wks
[2023-08-25 10:28] LABS: Glucose Point of Care 111 mg/dl (65-105)
[2023-08-25] MEDS: CALCIUM CARBONATE (OSCAL) 500 MG TABLET PO (10:29)
[2023-08-25] MEDS: FERROUS SULFATE 325 MG TABLET DR PO ×2 (10:30→17:24)
[2023-08-25] MEDS: ASPIRIN 81 MG ENTERIC TABLET PO (10:30)
[2023-08-25] MEDS: FOLIC ACID 0.4 MG TABLET PO (10:30)
[2023-08-25] MEDS: CHOLECALCIFEROL 1,000 UNITS TABLET 5000 UNITS PO (10:30)
[2023-08-25] MEDS: MULTIVIT/MIN/PREN/FOL AC/IRON TABLET 1 TAB PO (10:30)
[2023-08-25 13:59] LABS: Glucose Point of Care 113 mg/dl (65-105)
[2023-08-25] MEDS: INSULIN HUMAN NPH (*BKC) 100 UNITS/ML 32 UNITS SUB-Q (21:16)
[2023-08-25 21:22] LABS: Glucose Point of Care 140 mg/dl (65-105)
[2023-08-26] VITALS (14 sets, daily range): BP systolic 107–135; BP diastolic 54–72; PULSE 74–97; RESP 16–18; TEMP 36.3–37.1; O2SAT 98–100
[2023-08-26 05:17] LABS: Glucose Point of Care 92 mg/dl (65-105)
--- NOTE | 2023-08-26 08:54 | PM.OBPNLAB ---
Pain Control Date/time seen: 08/26/23 08:45 Comments: Antepartum status. Continuous monitoring. Patricia is resting in bed. Arousable to voice. Denies pain or ctx. Reports good movement. Contractions Monitor mode: External Contraction pattern: Irregular Status status: Category ll Comments: Overall Cat 1 with episodic variable and prolonged FHT decelerations which have all resolved spontaneously. Assessment and Plan Plan: continuous present management Comments: Discussed plan of care with pt. Plan to continue continuous monitoring. Pt may come off to shower. Discussed activity while out of bed which will allow to continue monitoring. All questions answered.
[2023-08-26] MEDS: CALCIUM CARBONATE (OSCAL) 500 MG TABLET PO (09:21)
[2023-08-26] MEDS: ASPIRIN 81 MG ENTERIC TABLET PO (09:21)
[2023-08-26] MEDS: CHOLECALCIFEROL 1,000 UNITS TABLET 5000 UNITS PO (09:21)
[2023-08-26] MEDS: FERROUS SULFATE 325 MG TABLET DR PO ×2 (09:22→20:35)
[2023-08-26] MEDS: MULTIVIT/MIN/PREN/FOL AC/IRON TABLET 1 TAB PO (09:22)
[2023-08-26] MEDS: FOLIC ACID 0.4 MG TABLET PO (09:22)
[2023-08-26 11:59] LABS: Glucose Point of Care 118 mg/dl (65-105)
[2023-08-26 16:32] LABS: Glucose Point of Care 129 mg/dl (65-105)
[2023-08-26 21:16] LABS: Glucose Point of Care 148 mg/dl (65-105)
[2023-08-26] MEDS: INSULIN HUMAN NPH (*BKC) 100 UNITS/ML 32 UNITS SUB-Q (22:11)
[2023-08-27] VITALS (7 sets, daily range): BP systolic 117–128; BP diastolic 56–66; PULSE 86–100; RESP 16; TEMP 36.4–36.7; O2SAT 98–100
[2023-08-27 05:35] LABS: Glucose Point of Care 82 mg/dl (65-105)
[2023-08-27] MEDS: MULTIVIT/MIN/PREN/FOL AC/IRON TABLET 1 TAB PO (09:05)
[2023-08-27] MEDS: ASPIRIN 81 MG ENTERIC TABLET PO (09:05)
[2023-08-27] MEDS: CHOLECALCIFEROL 1,000 UNITS TABLET 5000 UNITS PO (09:05)
[2023-08-27] MEDS: FERROUS SULFATE 325 MG TABLET DR PO ×2 (09:06→18:12)
[2023-08-27] MEDS: FOLIC ACID 0.4 MG TABLET PO (09:06)
[2023-08-27] MEDS: CALCIUM CARBONATE (OSCAL) 500 MG TABLET PO (09:06)
[2023-08-27 09:13] LABS: Glucose Point of Care 129 mg/dl (65-105)
--- NOTE | 2023-08-27 09:40 | PM.OBPNVD ---
OB - PN: Subj Subjective Date/time seen: 08/27/23 09:40 Interval history: good movement Patient comments: no complaints OB - PN: Obj Data Labs Labs: Laboratory Results - last 24 hr 08/26/23 08/26/23 08/26/23 10:33 14:35 20:33 POC Capillary Glucose 118 H 129 H 148 H 08/27/23 08/27/23 05:28 09:09 POC Capillary Glucose 82 129 H OB - PN A/P Assessment and Plan (1) with 34 to 36 completed weeks gestation: Status: Acute Assessment and Plan: 34 and 5/7 weeks continued random decelerations. Will continue monitoring. (2) GDM, class A2: Code(s): O24.419 - Gestational diabetes mellitus in , unspecified control Status: Acute Assessment and Plan: elevated postprandial for dinner otherwise normal Accu-Cheks continue HS NPH at current dosing Time Spent With Patient Time: Total time spent is greater than 50% in coordination of care (as documented) at patient's floor/unit and/or counseling patient: Exam Narrative: abdomen soft, nontender, gravid heart tones reactive throughout the last 24hours with continued random decelerations lasting [id number]
[2023-08-27 14:50] LABS: Glucose Point of Care 124 mg/dl (65-105)
[2023-08-27 19:36] LABS: Glucose Point of Care 124 mg/dl (65-105)
[2023-08-27] MEDS: INSULIN HUMAN NPH (*BKC) 100 UNITS/ML 32 UNITS SUB-Q (21:04)
[2023-08-28] VITALS (9 sets, daily range): BP systolic 115–118; BP diastolic 62–71; PULSE 82–95; TEMP 36.2–36.6; O2SAT 97–99
[2023-08-28 06:36] LABS: Glucose Point of Care 82 mg/dl (65-105)
--- NOTE | 2023-08-28 07:59 | PM.OBPNVD ---
OB - PN: Subj Subjective Date/time seen: 08/28/23 07:59 Interval history: good movement no complaints OB - PN: Obj Data Labs Labs: Laboratory Results - last 24 hr 08/27/23 08/27/23 08/27/23 09:09 14:45 19:30 POC Capillary Glucose 129 H 124 H 124 H 08/28/23 06:30 POC Capillary Glucose 82 OB - PN A/P Assessment and Plan (1) with 34 to 36 completed weeks gestation: Status: Acute Assessment and Plan: 35 wks plan GBS continue montioring (2) GDM, class A2: Code(s): O24.419 - Gestational diabetes mellitus in , unspecified control Status: Acute Assessment and Plan: good accuchecks continue diet and insulin Time Spent With Patient Time: Total time spent is greater than 50% in coordination of care (as documented) at patient's floor/unit and/or counseling patient: Exam Narrative: abdomen soft,nt FHTs with continued random deceleration and with several prolonged 3-5 min decelerations
[2023-08-28] MEDS: CHOLECALCIFEROL 1,000 UNITS TABLET 5000 UNITS PO (09:26)
[2023-08-28] MEDS: ASPIRIN 81 MG ENTERIC TABLET PO (09:27)
[2023-08-28] MEDS: FOLIC ACID 0.4 MG TABLET PO (09:27)
[2023-08-28] MEDS: MULTIVIT/MIN/PREN/FOL AC/IRON TABLET 1 TAB PO (09:27)
[2023-08-28] MEDS: FERROUS SULFATE 325 MG TABLET DR PO ×2 (09:28→18:42)
[2023-08-28] MEDS: CALCIUM CARBONATE (OSCAL) 500 MG TABLET PO (09:28)
[2023-08-28 09:35] LABS: Glucose Point of Care 121 mg/dl (65-105)
[2023-08-28 13:54] LABS: Glucose Point of Care 118 mg/dl (65-105)
[2023-08-28 19:43] LABS: Glucose Point of Care 135 mg/dl (65-105)
[2023-08-28] MEDS: INSULIN HUMAN NPH (*BKC) 100 UNITS/ML 32 UNITS SUB-Q (21:12)
[2023-08-29] VITALS (12 sets, daily range): BP systolic 102–133; BP diastolic 53–73; PULSE 83–97; RESP 16–18; TEMP 36.2–36.8; O2SAT 98–99
--- NOTE | 2023-08-29 07:51 | PM.OBPNLAB ---
Pain Control Date/time seen: 08/29/23 07:25 Comments: Denies pain. No complaints. Pelvic Exam Comments: SVE deferred Contractions Monitor mode: External Contraction pattern: Irregular Status status: Category l Comments: Overall reactive and reassuring tracing. Occasional, episodic variables and prolonged FHT decelerations. No decels requiring intervention, all resolve spontaneously. Assessment and Plan Comments: 1. y.o. at 35 weeks 1 day gestation. 2. GDMA2 - all blood sugars WNL. Following diabetic diet. NPH at HS, no changes 3. decelerations - overall reactive and reassuring tracing. No decels requiring intervention. - plan to continue monitoring. - good movement.
[2023-08-29 08:07] LABS: Glucose Point of Care 79 mg/dl (65-105)
[2023-08-29] MEDS: FOLIC ACID 0.4 MG TABLET PO (09:02)
[2023-08-29] MEDS: CHOLECALCIFEROL 1,000 UNITS TABLET 5000 UNITS PO (09:02)
[2023-08-29] MEDS: FERROUS SULFATE 325 MG TABLET DR PO ×2 (09:02→21:00)
[2023-08-29] MEDS: ASPIRIN 81 MG ENTERIC TABLET PO (09:03)
[2023-08-29] MEDS: MULTIVIT/MIN/PREN/FOL AC/IRON TABLET 1 TAB PO (09:03)
[2023-08-29] MEDS: CALCIUM CARBONATE (OSCAL) 500 MG TABLET PO ×2 (09:06→22:39)
[2023-08-29 10:01] LABS: Glucose Point of Care 161 mg/dl (65-105)
[2023-08-29 14:07] LABS: Glucose Point of Care 104 mg/dl (65-105)
[2023-08-29 20:16] LABS: Glucose Point of Care 161 mg/dl (65-105)
[2023-08-29] MEDS: INSULIN HUMAN NPH (*BKC) 100 UNITS/ML 32 UNITS SUB-Q (22:57)
[2023-08-30] VITALS (12 sets, daily range): BP systolic 108–130; BP diastolic 65–80; PULSE 42–108; RESP 18; TEMP 36.4–36.8; O2SAT 96–99
[2023-08-30 07:27] LABS: Glucose Point of Care 77 mg/dl (65-105)
--- NOTE | 2023-08-30 07:55 | PC.NURSE ---
Dr. Guzman and RN at bedside. POC reviewed, no new orders given at this time.
[2023-08-30] MEDS: CHOLECALCIFEROL 1,000 UNITS TABLET 5000 UNITS PO (09:21)
[2023-08-30] MEDS: FERROUS SULFATE 325 MG TABLET DR PO ×2 (09:22→19:05)
[2023-08-30] MEDS: CALCIUM CARBONATE (OSCAL) 500 MG TABLET PO (09:22)
[2023-08-30] MEDS: ASPIRIN 81 MG ENTERIC TABLET PO (09:22)
[2023-08-30] MEDS: MULTIVIT/MIN/PREN/FOL AC/IRON TABLET 1 TAB PO (09:22)
[2023-08-30] MEDS: FOLIC ACID 0.4 MG TABLET PO (09:22)
[2023-08-30 10:14] LABS: Glucose Point of Care 132 mg/dl (65-105)
[2023-08-30 13:51] LABS: Glucose Point of Care 124 mg/dl (65-105)
--- NOTE | 2023-08-30 14:17 | PM.OBPNVD ---
OB - PN: Subj Subjective Date/time seen: 08/30/23 14:17 Interval history: good movement no complaints OB - PN: Obj Data Labs Labs: Laboratory Results - last 24 hr 08/29/23 08/30/23 08/30/23 20:12 07:20 10:10 POC Capillary Glucose 161 H 77 132 H 08/30/23 13:48 POC Capillary Glucose 124 H OB - PN A/P Assessment and Plan (1) with 34 to 36 completed weeks gestation: Status: Acute Assessment and Plan: IUP 35 2/7 wks continue monitoring (2) GDM, class A2: Code(s): O24.419 - Gestational diabetes mellitus in , unspecified control Status: Acute Assessment and Plan: continue diet and accuchecks Time Spent With Patient Time: Total time spent is greater than 50% in coordination of care (as documented) at patient's floor/unit and/or counseling patient: Exam Narrative: abdomen soft, nt FHTs Cat I with good acels and variability less random decels in last 24 hours. Most are 60-120 sec
[2023-08-30 19:11] LABS: Glucose Point of Care 147 mg/dl (65-105)
[2023-08-30] MEDS: INSULIN HUMAN NPH (*BKC) 100 UNITS/ML 32 UNITS SUB-Q (22:06)
[2023-08-31 05:42] VITALS: PULSE 94; O2SAT 98
[2023-08-31 05:43] VITALS: TEMP 36.4
[2023-08-31 05:44] VITALS: BP 105/54; PULSE 89; RESP 14; TEMP 36.4; O2SAT 98
--- NOTE | 2023-08-31 07:26 | PM.OBPNVD ---
OB - PN: Subj Subjective Date/time seen: 08/31/23 07:26 Interval history: good movement no complaints OB - PN: Obj Data Labs Labs: Laboratory Results - last 24 hr 08/30/23 08/30/23 08/30/23 07:20 10:10 13:48 POC Capillary Glucose 77 132 H 124 H 08/30/23 19:04 POC Capillary Glucose 147 H OB - PN A/P Assessment and Plan (1) with 34 to 36 completed weeks gestation: Status: Acute Assessment and Plan: IUP 35 4/7 wks continue monitoring (2) GDM, class A2: Code(s): O24.419 - Gestational diabetes mellitus in , unspecified control Status: Acute Assessment and Plan: continue diet and insulin Time Spent With Patient Time: Total time spent is greater than 50% in coordination of care (as documented) at patient's floor/unit and/or counseling patient: Exam Narrative: abdomen soft, nt FHTs Cat I with continued random deceleration ranging from 30 sec to 4 minutes.
[2023-08-31 07:41] VITALS: BP 124/61; PULSE 90; TEMP 36.8
[2023-08-31 07:44] LABS: Glucose Point of Care 89 mg/dl (65-105)
[2023-08-31] MEDS: FERROUS SULFATE 325 MG TABLET DR PO ×2 (08:52→20:37)
[2023-08-31] MEDS: CALCIUM CARBONATE (OSCAL) 500 MG TABLET PO (08:52)
[2023-08-31] MEDS: MULTIVIT/MIN/PREN/FOL AC/IRON TABLET 1 TAB PO (08:52)
[2023-08-31] MEDS: CHOLECALCIFEROL 1,000 UNITS TABLET 5000 UNITS PO (08:52)
[2023-08-31] MEDS: ASPIRIN 81 MG ENTERIC TABLET PO (08:52)
[2023-08-31] MEDS: FOLIC ACID 0.4 MG TABLET PO (08:53)
[2023-08-31 10:23] LABS: Glucose Point of Care 153 mg/dl (65-105)
[2023-08-31 12:36] VITALS: BP 114/68; PULSE 92; TEMP 36.3
[2023-08-31 13:41] LABS: Glucose Point of Care 114 mg/dl (65-105)
[2023-08-31 20:42] LABS: Glucose Point of Care 151 mg/dl (65-105)
[2023-08-31] MEDS: INSULIN HUMAN NPH (*BKC) 100 UNITS/ML 32 UNITS SUB-Q (22:38)
[2023-08-31 23:00] VITALS: TEMP 36.6
[2023-09-01] VITALS (7 sets, daily range): BP systolic 105–127; BP diastolic 60–82; PULSE 85–99; RESP 18; TEMP 36.4–36.6
[2023-09-01 07:48] LABS: Glucose Point of Care 83 mg/dl (65-105)
[2023-09-01] MEDS: CHOLECALCIFEROL 1,000 UNITS TABLET 5000 UNITS PO (08:55)
[2023-09-01] MEDS: ASPIRIN 81 MG ENTERIC TABLET PO (08:55)
[2023-09-01] MEDS: MULTIVIT/MIN/PREN/FOL AC/IRON TABLET 1 TAB PO (08:56)
[2023-09-01] MEDS: CALCIUM CARBONATE (OSCAL) 500 MG TABLET PO (08:56)
[2023-09-01] MEDS: FERROUS SULFATE 325 MG TABLET DR PO ×2 (08:56→20:02)
[2023-09-01] MEDS: FOLIC ACID 0.4 MG TABLET PO (08:56)
[2023-09-01 09:54] LABS: Glucose Point of Care 123 mg/dl (65-105)
--- NOTE | 2023-09-01 09:55 | PM.OBPNVD ---
OB - PN: Subj Subjective Date/time seen: 09/01/23 09:55 Narrative: No pain, no contractions. Feels fine. OB - PN: Obj Data Labs Labs: Laboratory Results - last 24 hr 08/31/23 08/31/23 08/31/23 10:18 13:35 20:39 POC Capillary Glucose 153 H 114 H 151 H 09/01/23 09/01/23 07:41 09:52 POC Capillary Glucose 83 123 H OB - PN A/P Plan Comments: A: IUP at 34 5/7 weeks; A2DM, fairly good glycemic control; abnormal NST, stable. P: Continue present management. Exam Narrative: AVSS ABD soft, nontender, gravid. NST 120 reactive, one deceleration at 1100 yesterday, none since. EXT nontender
[2023-09-01 14:30] LABS: Glucose Point of Care 94 mg/dl (65-105)
[2023-09-01 20:01] LABS: Glucose Point of Care 159 mg/dl (65-105)
[2023-09-01] MEDS: INSULIN HUMAN NPH (*BKC) 100 UNITS/ML 32 UNITS SUB-Q (21:37)
[2023-09-02 07:19] VITALS: BP 98/53; PULSE 85; RESP 14; TEMP 36.5
[2023-09-02 09:04] LABS: Glucose Point of Care 89 mg/dl (65-105)
[2023-09-02] MEDS: ASPIRIN 81 MG ENTERIC TABLET PO (09:07)
[2023-09-02] MEDS: CALCIUM CARBONATE (OSCAL) 500 MG TABLET PO (09:07)
[2023-09-02] MEDS: CHOLECALCIFEROL 1,000 UNITS TABLET 5000 UNITS PO (09:08)
[2023-09-02] MEDS: FERROUS SULFATE 325 MG TABLET DR PO ×2 (09:08→20:13)
[2023-09-02] MEDS: FOLIC ACID 0.4 MG TABLET PO (09:08)
[2023-09-02] MEDS: MULTIVIT/MIN/PREN/FOL AC/IRON TABLET 1 TAB PO (09:08)
--- NOTE | 2023-09-02 09:50 | PM.OBPNVD ---
OB - PN: Subj Subjective Date/time seen: 09/02/23 09:50 Narrative: Rare contractions. No complaints. Good movement. OB - PN: Obj Data Labs Labs: Laboratory Results - last 24 hr 09/01/23 09/01/23 09/01/23 09:52 14:27 19:58 POC Capillary Glucose 123 H 94 159 H 09/02/23 09:01 POC Capillary Glucose 89 OB - PN A/P Plan Comments: A: IUP at 35 5/7 weeks, with nonreassuring NST. Clinically stable. 1h after dinner accuchecks still a little elevated, but blood glucose otherwise normal. P: Continue current management. Exam Psych: Other: AVSS ABD soft, nontender, gravid. NST reactive. TOCO: rare contractions. EXT nontender
[2023-09-02 10:49] LABS: Glucose Point of Care 132 mg/dl (65-105)
[2023-09-02 14:02] VITALS: BP 114/76; PULSE 103; TEMP 36.6
[2023-09-02 14:06] LABS: Glucose Point of Care 137 mg/dl (65-105)
[2023-09-02 18:11] VITALS: BP 128/72; PULSE 106; RESP 16; TEMP 36.5; O2SAT 99
[2023-09-02 20:49] LABS: Glucose Point of Care 119 mg/dl (65-105)
[2023-09-02] MEDS: INSULIN HUMAN NPH (*BKC) 100 UNITS/ML 32 UNITS SUB-Q (22:13)
[2023-09-02 22:16] VITALS: BP 114/58; PULSE 88; PULSE 92; O2SAT 98
[2023-09-02 23:16] VITALS: RESP 18; TEMP 36.6
[2023-09-03] VITALS (7 sets, daily range): BP systolic 112–129; BP diastolic 56–78; PULSE 70–97; RESP 16–18; TEMP 36.1–36.6; O2SAT 98–99
[2023-09-03] MEDS: CHOLECALCIFEROL 1,000 UNITS TABLET 5000 UNITS PO (07:27)
[2023-09-03] MEDS: ASPIRIN 81 MG ENTERIC TABLET PO (07:27)
[2023-09-03] MEDS: FOLIC ACID 0.4 MG TABLET PO (07:27)
[2023-09-03] MEDS: MULTIVIT/MIN/PREN/FOL AC/IRON TABLET 1 TAB PO (07:27)
[2023-09-03] MEDS: FERROUS SULFATE 325 MG TABLET DR PO ×2 (07:27→20:50)
[2023-09-03] MEDS: CALCIUM CARBONATE (OSCAL) 500 MG TABLET PO (07:27)
[2023-09-03 07:34] LABS: Glucose Point of Care 85 mg/dl (65-105)
--- NOTE | 2023-09-03 07:48 | PM.OBPNLAB ---
Pain Control Date/time seen: 09/03/23 07:45 Comments: Doing well. Affect pleasant. No complaints. Contractions Monitor mode: External Contraction pattern: Irregular Status status: Category l Comments: Overall reassuring and reactive tracing. Very occasional variable decelerations which all have resolved spontaneously. Assessment and Plan Plan: continuous present management Comments: 1.?37 y.o. at 35 weeks 6 days gestation. - plan per Dr. Guzman is contraction stress test at 37 weeks 2. GDMA2 ? - all blood sugars mostly WNL. Following diabetic diet. NPH at HS, no changes 3. decelerations ? - overall reactive and reassuring tracing. No decels requiring intervention. ? - plan to continue monitoring. ? - good movement.
[2023-09-03 09:13] LABS: Glucose Point of Care 139 mg/dl (65-105)
[2023-09-03 13:58] LABS: Glucose Point of Care 113 mg/dl (65-105)
[2023-09-03 20:54] LABS: Glucose Point of Care 141 mg/dl (65-105)
[2023-09-03] MEDS: INSULIN HUMAN NPH (*BKC) 100 UNITS/ML 32 UNITS SUB-Q (21:59)
[2023-09-04] VITALS (9 sets, daily range): BP systolic 112–130; BP diastolic 59–88; PULSE 86–93; RESP 14–16; TEMP 36–36.6; O2SAT 98–100
--- NOTE | 2023-09-04 07:44 | PM.OBPNVD ---
OB - PN: Subj Subjective Date/time seen: 09/04/23 07:44 Interval history: good movement no complaints OB - PN: Obj Data Labs Labs: Laboratory Results - last 24 hr 09/03/23 09/03/23 09/03/23 09:01 13:54 20:48 POC Capillary Glucose 139 H 113 H 141 H OB - PN A/P Assessment and Plan (1) with 34 to 36 completed weeks gestation: Status: Acute Assessment and Plan: IUP 36 wks decelerations continue but are less frequent continue to monitor and plan delivery 37-38 wks (2) GDM, class A2: Code(s): O24.419 - Gestational diabetes mellitus in , unspecified control Status: Acute Assessment and Plan: continue diet and insulin Time Spent With Patient Time: Total time spent is greater than 50% in coordination of care (as documented) at patient's floor/unit and/or counseling patient: Exam Narrative: abdomen soft, nt FHTs reactive with less decelerations over last 48 hours.
[2023-09-04] MEDS: MULTIVIT/MIN/PREN/FOL AC/IRON TABLET 1 TAB PO (08:30)
[2023-09-04] MEDS: ASPIRIN 81 MG ENTERIC TABLET PO (08:30)
[2023-09-04] MEDS: FOLIC ACID 0.4 MG TABLET PO (08:30)
[2023-09-04] MEDS: CHOLECALCIFEROL 1,000 UNITS TABLET 5000 UNITS PO (08:31)
[2023-09-04] MEDS: CALCIUM CARBONATE (OSCAL) 500 MG TABLET PO (08:31)
[2023-09-04] MEDS: FERROUS SULFATE 325 MG TABLET DR PO ×2 (08:31→21:23)
[2023-09-04 08:39] LABS: Glucose Point of Care 84 mg/dl (65-105)
[2023-09-04 09:58] LABS: Glucose Point of Care 128 mg/dl (65-105)
[2023-09-04 14:46] LABS: Glucose Point of Care 133 mg/dl (65-105)
[2023-09-04 21:18] LABS: Glucose Point of Care 156 mg/dl (65-105)
[2023-09-04] MEDS: INSULIN HUMAN NPH (*BKC) 100 UNITS/ML 32 UNITS SUB-Q (21:57)
[2023-09-05] VITALS (8 sets, daily range): BP systolic 108–123; BP diastolic 51–75; PULSE 82–93; RESP 16; TEMP 36.3–36.9; O2SAT 98
[2023-09-05] MEDS: ASPIRIN 81 MG ENTERIC TABLET PO (07:42)
[2023-09-05] MEDS: CHOLECALCIFEROL 1,000 UNITS TABLET 5000 UNITS PO (07:42)
[2023-09-05] MEDS: MULTIVIT/MIN/PREN/FOL AC/IRON TABLET 1 TAB PO (07:42)
[2023-09-05] MEDS: FOLIC ACID 0.4 MG TABLET PO (07:42)
[2023-09-05] MEDS: CALCIUM CARBONATE (OSCAL) 500 MG TABLET PO (07:43)
[2023-09-05] MEDS: FERROUS SULFATE 325 MG TABLET DR PO ×2 (07:43→20:51)
[2023-09-05 07:49] LABS: Glucose Point of Care 78 mg/dl (65-105)
[2023-09-05 09:16] LABS: Glucose Point of Care 143 mg/dl (65-105)
--- NOTE | 2023-09-05 10:00 | PM.OBPNLAB ---
Pain Control Date/time seen: 09/05/23 2690 Comments: Doing very well. Reports occasional, random contractions- not painful. Good movement. Denies ROM or vaginal bleeding. Mood pleasant and cheerful. Pelvic Exam Comments: deferred Contractions Monitor mode: External Contraction pattern: Irregular Status status: Category l Comments: Tracing reviewed for last 24 hours. Sporadic variable decels noted (1 prolonged), all resolve spontaneously. Assessment and Plan Plan: continuous present management Comments: Comments: 1.?37 y.o. at 36 weeks 1 days gestation. ? ? - plan per Dr. Guzman is contraction stress test at 37-38 weeks 2. GDMA2 ? - all blood sugars mostly WNL. Following diabetic diet. NPH at HS, no changes 3. decelerations ? - overall reactive and reassuring tracing. No decels requiring intervention. ? - plan to continue monitoring. ? - good movement.
[2023-09-05 15:01] LABS: Glucose Point of Care 104 mg/dl (65-105)
[2023-09-05 20:54] LABS: Glucose Point of Care 142 mg/dl (65-105)
[2023-09-05] MEDS: INSULIN HUMAN NPH (*BKC) 100 UNITS/ML 32 UNITS SUB-Q (22:27)
[2023-09-06] VITALS (15 sets, daily range): BP systolic 105–137; BP diastolic 56–70; PULSE 72–94; RESP 16–18; TEMP 36.3–37; O2SAT 94–100
--- NOTE | 2023-09-06 07:50 | PM.OBPNVD ---
OB - PN: Subj Subjective Date/time seen: 09/06/23 07:50 Interval history: good movement no complaints OB - PN: Obj Data Labs Labs: Laboratory Results - last 24 hr 09/05/23 09/05/23 09/05/23 09:13 14:57 20:51 POC Capillary Glucose 143 H 104 142 H OB - PN A/P Assessment and Plan (1) 36 to 37 weeks gestation of : Status: Acute Assessment and Plan: 36 2/7 wks Continue monitoring plan MIL 37-38 wks if monitoring remains same (2) GDM, class A2: Code(s): O24.419 - Gestational diabetes mellitus in , unspecified control Status: Acute Assessment and Plan: AccuCheck ok after dinners slightly above cut off continue to monitor, diet, and insulin Time Spent With Patient Time: Total time spent is greater than 50% in coordination of care (as documented) at patient's floor/unit and/or counseling patient: Exam Narrative: abdomen soft, nt FHTs reactive with approx 7 deceleration in last 24 hours (30-120 sec)
[2023-09-06 07:53] LABS: Glucose Point of Care 83 mg/dl (65-105)
[2023-09-06] MEDS: CHOLECALCIFEROL 1,000 UNITS TABLET 5000 UNITS PO (08:16)
[2023-09-06] MEDS: MULTIVIT/MIN/PREN/FOL AC/IRON TABLET 1 TAB PO (08:16)
[2023-09-06] MEDS: FOLIC ACID 0.4 MG TABLET PO (08:17)
[2023-09-06] MEDS: CALCIUM CARBONATE (OSCAL) 500 MG TABLET PO (08:17)
[2023-09-06] MEDS: FERROUS SULFATE 325 MG TABLET DR PO ×2 (08:17→19:39)
[2023-09-06 10:03] LABS: Glucose Point of Care 147 mg/dl (65-105)
[2023-09-06 14:11] LABS: Glucose Point of Care 112 mg/dl (65-105)
[2023-09-06] MEDS: INSULIN HUMAN NPH (*BKC) 100 UNITS/ML 32 UNITS SUB-Q (20:41)
[2023-09-06 20:46] LABS: Glucose Point of Care 131 mg/dl (65-105)
[2023-09-07 07:26] VITALS: PULSE 77; RESP 16; TEMP 36.8; O2SAT 100
[2023-09-07 07:27] VITALS: BP 107/66; PULSE 80
[2023-09-07 07:30] LABS: Glucose Point of Care 80 mg/dl (65-105)
--- NOTE | 2023-09-07 07:52 | PM.OBPNVD ---
OB - PN: Subj Subjective Date/time seen: 09/07/23 07:52 Interval history: good movement no complaints OB - PN: Obj Data Labs Labs: Laboratory Results - last 24 hr 09/06/23 09/06/23 09/06/23 07:50 09:58 13:57 POC Capillary Glucose 83 147 H 112 H 09/06/23 09/07/23 20:39 07:24 POC Capillary Glucose 131 H 80 OB - PN A/P Assessment and Plan (1) 36 to 37 weeks gestation of : Status: Acute Assessment and Plan: IUP 36 3/7 wks Continue monitoring for decelerations Plan MIL trial 37-38 wks (2) GDM, class A2: Code(s): O24.419 - Gestational diabetes mellitus in , unspecified control Status: Acute Assessment and Plan: Good FBS some meals just over 140 continue insulin, diet, accu checks Time Spent With Patient Time: Total time spent is greater than 50% in coordination of care (as documented) at patient's floor/unit and/or counseling patient: Exam Narrative: abdomen soft, nt FHTs reactive with random decelerations from 1 min to 6 min
[2023-09-07] MEDS: MULTIVIT/MIN/PREN/FOL AC/IRON TABLET 1 TAB PO (09:50)
[2023-09-07] MEDS: CHOLECALCIFEROL 1,000 UNITS TABLET 5000 UNITS PO (09:50)
[2023-09-07] MEDS: FOLIC ACID 0.4 MG TABLET PO (09:50)
[2023-09-07] MEDS: CALCIUM CARBONATE (OSCAL) 500 MG TABLET PO (09:51)
[2023-09-07] MEDS: FERROUS SULFATE 325 MG TABLET DR PO ×2 (09:51→20:28)
[2023-09-07 10:35] LABS: Glucose Point of Care 143 mg/dl (65-105)
[2023-09-07 14:07] VITALS: BP 130/71; PULSE 81; PULSE 87; RESP 16; TEMP 36.8; O2SAT 99
[2023-09-07 15:14] LABS: Glucose Point of Care 174 mg/dl (65-105)
[2023-09-07 17:20] VITALS: BP 129/67; PULSE 76; PULSE 78; RESP 16; TEMP 36.8; O2SAT 100
[2023-09-07 20:32] LABS: Glucose Point of Care 169 mg/dl (65-105)
[2023-09-07] MEDS: INSULIN HUMAN NPH (*BKC) 100 UNITS/ML 32 UNITS SUB-Q (22:06)
[2023-09-08] VITALS (9 sets, daily range): BP systolic 120–133; BP diastolic 66–73; PULSE 82–94; RESP 16–18; TEMP 36.4–37.2; O2SAT 98–100
--- NOTE | 2023-09-08 07:16 | PC.NURSE ---
Dr. Nate Klein at the bedside discussing POC with the pt. okay with pt coming off the monitor for 30 min 3 times a day. ordered BPP this am and IV to be placed.
--- NOTE | 2023-09-08 07:22 | PM.OBPNVD ---
OB - PN: Subj Subjective Date/time seen: 09/08/23 07:22 Interval history: good movement no complaints Patient comments: no complaints OB - PN: Obj Data Labs Labs: Laboratory Results - last 24 hr 09/07/23 09/07/23 09/07/23 07:24 10:32 15:10 POC Capillary Glucose 80 143 H 174 H 09/07/23 20:29 POC Capillary Glucose 169 H OB - PN A/P Plan Comments: check bpp follow. sugars reasonable Time Spent With Patient Time: Total time spent is greater than 50% in coordination of care (as documented) at patient's floor/unit and/or counseling patient: Time with patient: less than 15 minutes Exam Const: General: cooperative, healthy appearing and comfortable Nutritional Appearance: average body habitus
[2023-09-08 08:26] LABS: Glucose Point of Care 86 mg/dl (65-105)
[2023-09-08] MEDS: CHOLECALCIFEROL 1,000 UNITS TABLET 5000 UNITS PO (08:29)
[2023-09-08] MEDS: FOLIC ACID 0.4 MG TABLET PO (08:30)
[2023-09-08] MEDS: FERROUS SULFATE 325 MG TABLET DR PO ×2 (08:30→20:24)
[2023-09-08] MEDS: MULTIVIT/MIN/PREN/FOL AC/IRON TABLET 1 TAB PO (08:30)
[2023-09-08 10:04] LABS: Glucose Point of Care 103 mg/dl (65-105)
[2023-09-08 14:54] LABS: Glucose Point of Care 120 mg/dl (65-105)
[2023-09-08 20:30] LABS: Glucose Point of Care 129 mg/dl (65-105)
[2023-09-08] MEDS: INSULIN HUMAN NPH (*BKC) 100 UNITS/ML 32 UNITS SUB-Q (21:34)
--- NOTE | 2023-09-09 07:04 | PM.OBPNVD ---
OB - PN: Subj Subjective Date/time seen: 09/09/23 07:04 Interval history: good movement no complaints Patient comments: no complaints OB - PN: Obj Data Labs Labs: Laboratory Results - last 24 hr 09/08/23 09/08/23 09/08/23 08:16 10:00 14:49 POC Capillary Glucose 86 103 120 H 09/08/23 20:26 POC Capillary Glucose 129 H Imaging Radiologist's impression: Impressions Obstetrics US/Biophysical Profile 09/08/23 09:15 IMPRESSION: 1. Single living fetus in vertex presentation. 2. Biophysical profile 8 out of 8. ADDENDUM: 09/08/23 1015 The placenta is grade II (Grannum classification). OB - PN A/P Plan day: 0 Plan: routine care (continue observation) Time Spent With Patient Time: Total time spent is greater than 50% in coordination of care (as documented) at patient's floor/unit and/or counseling patient: Time with patient: less than 15 minutes Exam Narrative: few decels seen but excellent variabilty bpp pending Const: General: cooperative, healthy appearing and comfortable Nutritional Appearance: average body habitus Orientation/consciousness: oriented to person, oriented to place and oriented to time
[2023-09-09 08:01] VITALS: BP 118/70; PULSE 80; PULSE 81; TEMP 36.9; O2SAT 99
[2023-09-09] MEDS: FOLIC ACID 0.4 MG TABLET PO (08:02)
[2023-09-09] MEDS: CALCIUM CARBONATE (OSCAL) 500 MG TABLET PO (08:02)
[2023-09-09] MEDS: FERROUS SULFATE 325 MG TABLET DR PO ×3 (08:02→20:04)
[2023-09-09] MEDS: MULTIVIT/MIN/PREN/FOL AC/IRON TABLET 1 TAB PO (08:03)
[2023-09-09] MEDS: CHOLECALCIFEROL 1,000 UNITS TABLET 5000 UNITS PO (08:03)
[2023-09-09 08:07] LABS: Glucose Point of Care 88 mg/dl (65-105)
[2023-09-09 09:31] LABS: Glucose Point of Care 130 mg/dl (65-105)
[2023-09-09 13:21] VITALS: PULSE 90; O2SAT 99
[2023-09-09 13:22] VITALS: BP 125/73; PULSE 86; TEMP 36.9
[2023-09-09 13:51] LABS: Glucose Point of Care 168 mg/dl (65-105)
[2023-09-09 17:05] VITALS: BP 119/56; PULSE 76; PULSE 81; TEMP 36.6; O2SAT 100
[2023-09-09 20:08] LABS: Glucose Point of Care 169 mg/dl (65-105)
[2023-09-10] VITALS (55 sets, daily range): BP systolic 97–135; BP diastolic 49–77; PULSE 40–99; RESP 14–18; TEMP 36.4–37; O2SAT 97–100
[2023-09-10] MEDS: INSULIN HUMAN NPH (*BKC) 100 UNITS/ML 32 UNITS SUB-Q
[2023-09-10 00:43] LABS: Hematocrit 37.9 % (37.0-47.0); Mean Corpuscular HGB Conc 34.3 g/dl (32-36); Mean Corpuscular Hemoglobin 33.4 pg (26-34); Mean Corpuscular Volume 97.4 fl (80-100); Mean Platelet Volume 10.7 fl (7.4-10.4); Platelet Count Result 223 k/mm3 (150-375); Red Blood Count 3.89 M/mm3 (4.2-5.4); Red Cell Distribution Width 13.4 % (11.5-14.5); White Blood Count 9.3 K/mm3 (4.5-10.0)
[2023-09-10 08:20] LABS: Glucose Point of Care 76 mg/dl (65-105)
[2023-09-10] MEDS: CALCIUM CARBONATE (OSCAL) 500 MG TABLET PO (08:23)
[2023-09-10] MEDS: MULTIVIT/MIN/PREN/FOL AC/IRON TABLET 1 TAB PO (08:23)
[2023-09-10] MEDS: FOLIC ACID 0.4 MG TABLET PO (08:23)
[2023-09-10] MEDS: CHOLECALCIFEROL 1,000 UNITS TABLET 5000 UNITS PO (08:24)
[2023-09-10] MEDS: FERROUS SULFATE 325 MG TABLET DR PO (08:24)
[2023-09-10 10:07] LABS: Glucose Point of Care 108 mg/dl (65-105)
[2023-09-10] MEDS: ACETAMINOPHEN 500 MG TABLET 1000 MG PO (11:54)
--- NOTE | 2023-09-10 12:01 | WPDHPUPDATE1 ---
History and Physical Update Update Date/Time: 09/10/23 12:01 History and Physical has been reviewed, including an updated exam of the patient. There are NO changes in the patient's condition. Risks, benefits, and alternatives have been discussed and questions answered. Patient agrees to proceed with procedure.
--- NOTE | 2023-09-10 12:02 | PM.IMHP ---
H&P: HPI History of Present Illness Date/Time: 09/10/23 12:02 Chief Complaint: deceleration Narrative: the patient is a 37-year-old 4 para 2 aborta 1 admitted 08/24 after NST with decelerations noted. Patient has been monitored since admission and decelerations have been occasional and random. Some have been prolonged lasting [id number]. Last evening the patient had stronger contractions that she was feeling and after each contraction she was having a prolonged deceleration. They resolved at 1:00 a.m.. Biophysical profile at the time was a 68. Biophysical profile was repeated this a.m. and is an 8/8. Discussion with the patient and her spouse regarding events of last evening were reviewed. Discussed with them the failed contraction stress test that occurred last night with natural contractions. It was recommended against induction of labor. Timing for delivery was reviewed and decided for this afternoon. heart tones are currently reactive with occasional decelerations. Patient without other complaints. has been complicated by gestational diabetes insulin requiring. labs O positive, rubella immune, RPR negative, hepatitis-B surface antigen negative, HIV negative, and group B strep negative. Due to advanced maternal age, patient had level 2 ultrasound that was normal as well as a right low risk NIPT. In addition the original plan for control was a vasectomy. After discussing with the patient and her spouse the plan will be to proceed with a bilateral salpingectomy. Additional risks are reviewed. Patient is aware this is a permanent and irreversible procedure. Review of Systems Review of Systems: not repeated day of surgery; patient states no changes in status PMFSH Past Medical History Medical History (Updated 09/10/23 @ 12:11 by Natalie Guzman MD) History of asthma History of gestational diabetes With both prior pregnancies Major depressive disorder in full remission (normal spontaneous vaginal delivery) x2 Scoliosis of lumbar spine Vitamin D deficiency Surgical History Surgical History [place] teeth extracted 01/2008 Family History Family History Mother Dementia Asthma Sibling Asthma Grandparent Heart attack Father Heart problem CAD - stents Grandparent Ovarian cancer Grandparent Acute rheumatic heart disease Other Breast cancer, Onset Age: 39 mother's sister Other Cervical cancer, Onset Age: 68 Other Hereditary hemochromatosis, Onset Age: 38 Social History Social History (Updated 08/04/22 @ 17:00 by Cheyenne Nichols, PORTFOLIO STRATEGIST) Social History: Love is , she has 2 boys. 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 [employer]. Originally from [place]. Smoking status: Never smoker Second hand tobacco smoke exposure: No Alcohol intake: current Substance use: never Substance use type: does not use Do You Feel Safe in your Home?: Yes Lack of Transportation: No Lack of Food: Never True Current Housing: I Have Housing Concerned About Future Housing: No Difficulty Paying Gas/Electric Bills: No Difficulty Paying for Meds: No Currently Unemployed: No Education: Master's Degree or Higher Difficulty w/ Childcare or Family Care: No Living arrangements: with family Additional living arrangements comments: and 2 boys Occupation/Education: occupation Gender identity (if verbalized by the patient): Female Sexual Orientation (if Verbalized by the Patient): Straight or Heterosexual Spiritual care concerns: No Agree to blood products: Yes Meds Home Medications and Allergies Home Medications Medication Instructions Recorded Confirmed Type cholecalciferol (vitamin D3) 125 5,000 unit PO DAILY 05/10/19 02/24 H
[2023-09-10] MEDS: LACTATED RINGERS 1,000 ML 125 ML IV CONT ×2 (12:04→13:40)
--- NOTE | 2023-09-10 13:22 | WPDANESEPPF ---
Anes - Initial Pre Proc Eval Procedure: Operation Date: 09/10/23 14:00 Proposed Procedures p Section - Natalie Guzman MD Date/Time: 09/10/23 13:22 Surgeon: Natalie Guzman MD Pre Op Diagnosis: nst Patient Data Age: 37 Gender: F Height: 1.68 m Weight: 86 kg Last Vital Signs Temp 36.6 C 09/10/23 12:21 Pulse 89 09/10/23 13:16 Resp 16 09/08/23 17:50 BP 134/71 09/10/23 13:16 Pulse Ox 100 09/10/23 08:16 O2 Del Method Room Air 09/08/23 18:30 Allergies Allergy/AdvReac Type Severity Reaction Status Date / Time No Known Allergies Allergy Verified 08/24/23 20:41 Home Medications Medication Instructions Recorded Confirmed Type cholecalciferol (vitamin D3) 125 5,000 unit PO DAILY 05/10/19 08/24/23 History mcg (5,000 unit) tablet (Vitamin D3) vit no.95-ferrous 1 tablet PO DAILY 05/10/19 08/24/23 History fumarate 28 mg-folic acid 800 mcg tablet () insulin NPH isoph U-100 human 100 32 unit subcut HS 08/11/23 08/24/23 History unit/mL (3 mL) subcutaneous pen (Novolin N FlexPen) Cruz-Iron 1 tab-cap PO BID 08/24/23 08/24/23 History aspirin 81 mg chewable tablet 81 mg PO DAILY 08/24/23 08/24/23 History calcium 600 mg capsule 600 mg PO DAILY 08/24/23 08/24/23 History folic acid 1 tab-cap PO DAILY 08/24/23 08/24/23 History vitamin E 1 tab-cap PO DAILY 08/24/23 08/24/23 History Laboratory Tests 09/09/23 09/09/23 09/10/23 13:43 20:02 00:38 WBC 9.3 K/mm3 (4.5-10.0) RBC 3.89 L M/mm3 (4.2-5.4) Hgb 13.0 g/dL (12.0-15.0) Hct 37.9 % (37.0-47.0) MCV 97.4 fl (80-100) MCH 33.4 pg (26-34) MCHC 34.3 g/dl (32-36) RDW 13.4 % (11.5-14.5) Plt Count 223 k/mm3 (150-375) MPV 10.7 H fl (7.4-10.4) POC Capillary Glucose 168 H mg/dl 169 H mg/dl (65-105) (65-105) RPR Pending Blood Type O Positive Antibody Screen Negative 09/10/23 09/10/23 08:15 10:04 WBC RBC Hgb Hct MCV MCH MCHC RDW Plt Count MPV POC Capillary Glucose 76 mg/dl 108 H mg/dl (65-105) (65-105) RPR Blood Type Antibody Screen Patient hx anesthesia problems: none Family hx anesthesia problems: none Results Review: All pre-operative results and documents have been reviewed as part of the pre-operative evaluation. [facility] Past Medical History Medical History (Updated 09/10/23 @ 12:11 by Natalie Guzman MD) History of asthma History of gestational diabetes With both prior pregnancies Major depressive disorder in full remission (normal spontaneous vaginal delivery) x2 Scoliosis of lumbar spine Vitamin D deficiency Surgical History Surgical History [place] teeth extracted 01/2008 Family History Family History Mother Dementia Asthma Sibling Asthma Grandparent Heart attack Father Heart problem CAD - stents Grandparent Ovarian cancer Grandparent Acute rheumatic heart disease Other Breast cancer, Onset Age: 39 mother's sister Other Cervical cancer, Onset Age: 68 Other Hereditary hemochromatosis, Onset Age: 38 Social History Social History (Updated 08/04/22 @ 17:00 by Cheyenne Nichols, HEALTH PLAN ADVISOR) Social History: Love is , she has 2 boys. 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 Originally from [place]. Smoking status: Never smoker Second hand tobacco smoke exposure: No Alcohol intake: current Substance use: never Substance use type: does not use Do You Feel Safe in your Home?: Yes Lack of Transportation: No Lack of Food: Never True Current Housing: I Have Housing
[2023-09-10] MEDS: ONDANSETRON INJ 4 MG/2 ML VIAL IV PUSH (13:34)
[2023-09-10] MEDS: FAMOTIDINE 20 MG/2 ML VIAL IV PUSH (13:35)
[2023-09-10 13:45] LABS: Glucose Point of Care 76 mg/dl (65-105)
[2023-09-10 14:04] LABS: Rapid Plasma Reagin Non-Reactive (NonReactive)
[2023-09-10] MEDS: ceFAZolin 2 GM/D5W 50 ML 2 GM/50 ML BAG IVPB (14:42)
[2023-09-10] MEDS: KETOROLAC 15 MG/ML VIAL (*BKC) IV PUSH ×2 (15:33→21:40)
--- NOTE | 2023-09-10 15:40 | W.PM.OBCSD ---
OB - Delivery Note Procedure Delivery date: 09/10/23 Pre-op diagnosis: Gestational Diabetes ( insulin-requiring) and Other (36 6/7 wks with decelerations) Post-op Diagnosis: Same Induction method: None Delivery monitor: External FHT and External Uterine Procedure Performed: Primary Primary branch: low cervical, transverse Surgeon: Natalie Guzman MD Anesthesia type: Spinal Description of Procedure/Findings: The patient is taken to the operating room and placed under anesthesia in the dorsal supine position with a leftward tilt. Once anesthesia was deemed adequate she was prepped and draped in usual sterile fashion. A Pfannenstiel skin incision was made with a scalpel and carried down to the underlying layer of fascia which was nicked in the midline. Bovie cautery is used for hemostasis of the subcutaneous tissues. The fascial incision was extended laterally using Hein scissors. Ochsner was used to tent the fascia which was then dissected off using sharp and blunt dissection. The rectus muscles are in the midline and the peritoneum tented with a Peon. The peritoneal incision is made with Metzenbaum and extended with lateral traction. The bladder blade was placed. The vesicouterine peritoneum was tented entered with Metzenbaum scissors. The incision was extended laterally and the bladder flap created digitally. The bladder blade is replaced. The lower uterine segment is incised in a transverse fashion with the scalpel and extended with blunt traction. The membranes are ruptured and clear fluid noted. The vertex was elevated and the physiotherapist's assistant applied fundal pressure delivering the head. The remainder of the was delivered with fundal pressure and guiding the head. Nuchal cord x1 is reduced. The cord was very loose around the neck. Delayed cord clamping is performed and the crying well with good tone. The cord was then clamped and cut and the handed to the waiting nursery nurse. The cord blood for gases and lab were taken. The placenta was removed using manual traction. The placenta was inspected and noted to be normal grossly. The uterus was cleared of all clots and debris and exteriorized. The uterine incision was closed using 0 Monocryl in a running locked fashion and the same suture was used to imbricate good hemostasis is noted. Patient was asked in additional time if she wished to proceed with sterilization and she affirmed. The right tube was grasped with Pankaj and crossclamped using a Z clamp. The tube is excised and the pedicle tied off using 0 Vicryl in a Ivon stitch followed by free tie. The identical procedure was performed on the left tube. The low the tube the mesosalpinx required an additional ukokub-we-colax suture for hemostasis. The incision and both pedicles are hemostatic. The cul-de-sac is irrigated. The uterus was returned to the abdomen. The incision was again inspected and still noted to be hemostatic. The fascia was closed using 0 Vicryl in a running fashion subcutaneous tissues are irrigated noted to be hemostatic. The skin is closed using 4-0 Vicryl in a subcuticular fashion. Dermaflex was placed over the incision. Sponge, needle, and instrument counts are correct per the OR staff. Patient was given Ancef prior to cord clamp. Patient was taken to recovery in stable condition. Specimen: Yes ( Tubes and placenta) Estimated Blood Loss: 305 Drains: Yes ( Corado catheter) Packing: No Pathology: Yes ( see above) Complications: No immediate complications Condition: Stable Disposition: Floor [place] Baby Date of : 09/10/23 Weeks of gestation at delivery: 36 (36 6/7) Infant gender: Male Weight (pounds): 8 Weight (ounces): 3 presentation: vertex position: Right Occiput Anterior Placenta delivery description: Spontaneous Cord Vessel Description: Nuchal Cord ( loose x1) and Delayed Cord Clamping
--- NOTE | 2023-09-10 15:48 | PM.OBDSVD ---
DS: Admitting Diagnosis Discharge Date 09/14/23 Admitting Diagnosis intrauterine at 34 and 3/7 weeks gestational diabetes insulin requiring decelerations DS: Discharge Diagnosis Discharge Diagnosis (1) Delivery by section using transverse incision of lower segment of uterus: Code(s): O82 - Encounter for delivery without indication Status: Acute (2) Encounter for sterilization: Code(s): Z30.2 - Encounter for sterilization Status: Acute (3) Maternal care for decelerations during : Code(s): O36.8390 - Maternal care for abnormalities of the heart rate or rhythm, unspecified trimester, not applicable or unspecified Status: Acute (4) 36 to 37 weeks gestation of : Status: Acute Assessment and Plan: 12/13 (5) GDM, class A2: Code(s): O24.419 - Gestational diabetes mellitus in , unspecified control Status: Acute OB - DS: Summary OB Procedures : NST, Ultrasound and Other ( diabetes management) OB Procedures Intrapartum: low cervical, transverse and Tubal ligation OB Procedures: : None Peripartum Data Delivery Method: Section Procedures: Procedures Operation Date: 09/10/23 14:00 <No data on this case meets the specified criteria> complications: none Status at Discharge Functional status at discharge: independent ambulation Overall status at discharge: patient is progressing back to baseline Time Spent with Patient Time attestation: Total time spent providing and/or coordinating discharge services: DS: Data Data Completed and Pending Labs on day of discharge: Labs from last 24 hours 09/10/23 09/10/23 09/10/23 13:31 10:04 08:15 WBC RBC Hgb Hct MCV MCH MCHC RDW Plt Count MPV POC Capillary Glucose 76 108 H 76 RPR Blood Type Antibody Screen 09/10/23 09/09/23 00:38 20:02 WBC 9.3 RBC 3.89 L Hgb 13.0 Hct 37.9 MCV 97.4 MCH 33.4 MCHC 34.3 RDW 13.4 Plt Count 223 MPV 10.7 H POC Capillary Glucose 169 H RPR Non-reactive Blood Type O Positive Antibody Screen Negative Discharge Plan Discharge Attending physician on discharge: Natalie Guzman Discharging Clinician: Natalie Guzman Anticipated Discharge Date/Time: 09/13/23 15:50 Patient Disposition: Home, Self-Care Activity: may shower, may drive after 2 weeks and pelvic rest Diet: regular Wound Care Instructions: incision open to air Patient Instructions: Antibiotic Form Stand Alone Forms: General Discharge Information Follow-up/Referrals: Natalie Guzman MD [Physician] - 1 Week ( and 6 weeks) Discharge Medications: New hydrocodone-acetaminophen 5-325 mg tablet 1 tablet PO Q4H PRN (Reason: pain) Qty: 14 0RF Continued PNV cmb#[id number]-ferrous fumarate-FA [] 28 mg iron- 800 mcg Tablet 1 tablet PO DAILY cholecalciferol (vitamin D3) [Vitamin D3] 5,000 unit Tablet 5,000 unit PO DAILY vitamin E 1 tab-cap PO DAILY Discontinued Novolin N FlexPen 100 unit/mL (3 mL) insulin pen 32 unit SUBCUT HS calcium 600 mg Capsule 600 mg PO DAILY aspirin [Baby Aspirin] 81 mg Tablet,Chewable 81 mg PO DAILY Cruz-Iron 1 tab-cap PO BID folic acid 1 tab-cap PO DAILY Date of admission: 08/25/23 09:55 Primary Care Provider: Disha Goldstein Admitting Provider: Natalie Guzman Attending physician on admission: Natalie Guzman Condition: Stable
[2023-09-10] MEDS: MORPHINE SULFATE INJ (*CRX) 10 MG/ML AMP 2 MG IV PUSH ×3 (17:23→17:53)
[2023-09-10] MEDS: OXYTOCIN 30 UNITS/NS 500 ML 30 UNITS/500 ML BAG 125 UNITS IV CONT (17:26)
--- NOTE | 2023-09-10 18:00 | OBPPTRN ---
Patient transferred to post room #280 via stretcher at 1757. Support person present. Oriented to unit, room, information board, rooming in, admission packet and security measures. Patient verbalizes understanding.
[2023-09-10] MEDS: HYDROcodone/acetaminophen (*CRX) 10-325 MG TABLET 1 TAB PO (19:20)
[2023-09-10] MEDS: ACETAMINOPHEN 325 MG TABLET 650 MG PO (21:40)
[2023-09-10] MEDS: DEXTROSE 5%/0.45% SOD CHL 1,000 ML 125 ML IV CONT (23:48)
[2023-09-11 01:00] VITALS: BP 101/35; PULSE 72; RESP 18; TEMP 36.6; O2SAT 97
[2023-09-11] MEDS: KETOROLAC 15 MG/ML VIAL (*BKC) IV PUSH ×3 (03:50→17:06)
[2023-09-11] MEDS: ACETAMINOPHEN 325 MG TABLET 650 MG PO ×2 (03:50→14:16)
[2023-09-11 04:10] VITALS: BP 108/47; PULSE 78; RESP 18; TEMP 37.2; O2SAT 98
[2023-09-11 04:54] LABS: Basophils Percent Auto 0.3 % (0.2-1.2); Eosinophils Percent Auto 0.3 % (0-4.4); Hematocrit 37.2 % (37.0-47.0); Hemoglobin 12.5 g/dL (12.0-15.0); Immature Granulocyte Absolute 0.05 K/mm3 (0.00-0.031); Immature Granulocyte Percent A 0.6 % (0-0.5); Lymphocytes Absolute Auto 0.97 K/mm3 (0.9-3.2); Lymphocytes Percent Auto 12.3 % (18.3-44.2); Mean Corpuscular HGB Conc 33.6 g/dl (32-36); Mean Corpuscular Hemoglobin 33.2 pg (26-34); Mean Corpuscular Volume 98.9 fl (80-100); Mean Platelet Volume 10.5 fl (7.4-10.4); Monocytes Absolute Auto 0.5 K/mm3 (0.1-0.6); Monocytes Percent Auto 6.8 % (2.6-8.5); Neutrophils Absolute Auto 6.3 K/mm3 (1.3-6.7); Neutrophils Percent Auto 79.7 % (45.5-73.1); Platelet Count Result 178 k/mm3 (150-375); Red Blood Count 3.76 M/mm3 (4.2-5.4); Red Cell Distribution Width 13.3 % (11.5-14.5); White Blood Count 7.9 K/mm3 (4.5-10.0)
[2023-09-11 07:30] VITALS: BP 102/57; PULSE 80; RESP 18; TEMP 36.4
[2023-09-11] MEDS: DOCUSATE SODIUM 100 MG CAPSULE PO ×2 (07:31→17:08)
[2023-09-11] MEDS: SIMETHICONE 80 MG TAB.CHEW PO ×3 (07:31→17:08)
[2023-09-11] MEDS: MULTIVIT/MIN/PREN/FOL AC/IRON TABLET 1 TAB PO (07:31)
--- NOTE | 2023-09-11 07:44 | WPDANLDPN2 ---
Anes-Prog Note L&D Date/Time: 09/11/23 07:44 Comfortable throughout: section Neuraxial method: spinal Epidural/Spinal procedure site: clean & non-tender Neuro status: Neuro function grossly intact.catheter in place, to be DC this morning. all hip and leg function back to baseline. Cardiovascular status: normal Respiratory status: normal Airway patency: baseline Mental status: baseline Post-Op hydration status: normal Vital Signs: Last Vital Signs Temp 37.2 C 09/11/23 04:10 Pulse 78 09/11/23 04:10 Resp 18 09/11/23 04:10 BP 108/47 L 09/11/23 04:10 Pulse Ox 98 09/11/23 04:10 O2 Del Method Room Air 09/10/23 17:47 Pain score (VAS): 2 I/O: Intake & Output 09/10/23 09/10/23 09/11/23 15:59 23:59 07:59 Intake Total 2770 843 1171 Output Total 291 662 2863 Balance 695 300 -350 Post-procedural complaints: none Patient feedback: Patient satisfied with anesthetic care.
--- NOTE | 2023-09-11 07:45 | WPDANLDNPN2 ---
Anes-Prog Note L&D-Neuraxial Date/Time: 09/11/23 07:45 Neuraxial medications: intrathecal PF morphine Opiod-related complaints: none Patient feedback: Patient satisfied with post-operative pain management.
--- NOTE | 2023-09-11 07:59 | P.PNOB_ITS ---
OB - PN: Subj Subjective Date/time seen: 09/11/23 07:59 Patient comments: no complaints and pain well controlled baby status: doing well OB - PN: Obj Data Labs 09/11/23 03:52 Labs: Laboratory Results - last 24 hr 09/10/23 09/10/23 09/10/23 00:38 08:15 10:04 WBC RBC Hgb Hct MCV MCH MCHC RDW Plt Count MPV Immature Gran % (Auto) Neut % (Auto) Lymph % (Auto) [place] % (Auto) Eos % (Auto) Baso % (Auto) Lymph # (Auto) [place] # (Auto) Eos # (Auto) Baso # (Auto) Abs Immat Gran (auto) Absolute Neuts (auto) Absolute Nucleated RBC Nucleated RBC % POC Capillary Glucose 76 108 H RPR Non-reactive 09/10/23 09/11/23 13:31 03:52 WBC 7.9 RBC 3.76 L Hgb 12.5 Hct 37.2 MCV 98.9 MCH 33.2 MCHC 33.6 RDW 13.3 Plt Count 178 MPV 10.5 H Immature Gran % (Auto) 0.6 H Neut % (Auto) 79.7 H Lymph % (Auto) 12.3 L [place] % (Auto) 6.8 Eos % (Auto) 0.3 Baso % (Auto) 0.3 Lymph # (Auto) 0.97 [place] # (Auto) 0.5 Eos # (Auto) 0.0 Baso # (Auto) 0.0 Abs Immat Gran (auto) 0.05 H Absolute Neuts (auto) 6.3 Absolute Nucleated RBC 0.0 Nucleated RBC % 0.0 POC Capillary Glucose 76 RPR Imaging Radiologist's impression: Impressions Obstetrics US/Biophysical Profile 09/10/23 08:10 IMPRESSION: 1. Single living fetus in vertex presentation. 2. Biophysical profile 8 out of 8. OB - PN A/P Plan day: 1 Plan: routine care Time Spent With Patient Time: Total time spent is greater than 50% in coordination of care (as documented) at patient's floor/unit and/or counseling patient: Exam Narrative: inc c/d/i : Bimanual exam- vagina & uterus: other (Uterus firm, nt @U)
[2023-09-11] MEDS: HYDROcodone/acetaminophen (*CRX) 10-325 MG TABLET 1 TAB PO ×4 (08:31→23:13)
--- NOTE | 2023-09-11 11:28 | PC.NURSE ---
[id number] Introductions were made, then consulted with patient to assess needs related to . Discussed with mother her?plans to feed?her infant, the?experience so far going well with exception to difficulty waking at times, and reminders of the benefits of [id number]. We reviewed what to expect as it pertains to the milk supply, late behaviors, 1st 24 hours vs the 2nd 24 hours, and her history. Mother is confident and voiced understanding to call if she has pain with latching, difficulty waking infant, or has any questions or concerns. Resources provided for inpatient and outpatient services with the feeding sheet, mom/baby guide and name written on the communication board. Reported to the Primary RN.
[2023-09-11 16:20] VITALS: TEMP 38.2
[2023-09-11 19:29] VITALS: BP 120/64; PULSE 103; RESP 18; TEMP 37.5; O2SAT 100
[2023-09-11] MEDS: IBUPROFEN 600 MG TABLET PO (23:13)
[2023-09-12] MEDS: HYDROcodone/acetaminophen (*CRX) 10-325 MG TABLET 1 TAB PO ×3 (02:44→09:19)
[2023-09-12] MEDS: IBUPROFEN 600 MG TABLET PO ×3 (05:53→18:14)
--- NOTE | 2023-09-12 07:03 | P.PNOB_ITS ---
OB - PN: Subj Subjective Date/time seen: 09/12/23 0650 Interval history: Doing well. Urinating without difficulty. Denies passing any large clots. Denies dizziness with ambulating. Tolerating po food and fluids. Bonding with infant. Patient comments: incisional pain baby status: doing well, nursing well and bottle feeding well [place] feeding status: breast and bottle feeding OB - PN: Obj Data Labs 09/11/23 03:52 OB - PN A/P Plan day: 2 Plan: routine care Time Spent With Patient Time: Total time spent is greater than 50% in coordination of care (as documented) at patient's floor/unit and/or counseling patient: Review of Systems Review of Systems: All systems reviewed & are unremarkable except as noted in HPI and below Constitutional: Constitutional: Reports as per HPI ENT: Reports system reviewed and no additional complaints, except as documented Respiratory: Respiratory: Reports as per HPI Exam Const: General: cooperative, no acute distress and awake Orien tation/consciousness: patient oriented x3 Limitations: no limitations Resp: Effort & Inspection: normal respiratory effort and able to speak in complete sentences Auscultation: clear to auscultation bilaterally Cardio: Rate: regular rate Peripheral pulses: Peripheral pulses 2+ throughout GI: Inspection: normal to inspection Auscultation: normal bowel sounds : General: Yes bladder normal to palpation Speculum Exam - Vagina: vaginal bleeding Bimanual exam- vagina & uterus: bladder normal to palpation OB/external & speculum: vaginal bleeding Other: Fundus firm Skin: General skin exam: normal color Other: Incision c/d/i Neuro: General: patient oriented x3 Cognition (Neuro): normal cognition Speech: normal speech Extrem: General: normal to inspection Psych: Appearance: grossly normal Mental Status: mental status grossly normal Speech and movement: Normal speech and movement present Affect: normal affect Attitude: cooperative Thought process: Normal thought process present
[2023-09-12 07:55] VITALS: BP 105/59; PULSE 84; RESP 16; TEMP 36.1; O2SAT 98
[2023-09-12] MEDS: SIMETHICONE 80 MG TAB.CHEW PO ×3 (09:18→18:14)
[2023-09-12] MEDS: DOCUSATE SODIUM 100 MG CAPSULE PO ×2 (09:18→18:14)
[2023-09-12] MEDS: POLYSACCHARIDE IRON COMPLEX 150 MG CAPSULE PO (09:19)
[2023-09-12] MEDS: ACETAMINOPHEN 325 MG TABLET 650 MG PO ×2 (12:09→19:05)
[2023-09-12] MEDS: MULTIVIT/MIN/PREN/FOL AC/IRON TABLET 1 TAB PO (12:09)
[2023-09-12] MEDS: HYDROcodone/acetaminophen (*CRX) 5-325 MG TABLET 1 TAB PO ×4 (12:10→21:59)
[2023-09-12 20:00] VITALS: BP 138/78; PULSE 102; RESP 18; TEMP 36.4; O2SAT 95
[2023-09-13] MEDS: IBUPROFEN 600 MG TABLET PO ×4 (00:23→19:13)
[2023-09-13] MEDS: HYDROcodone/acetaminophen (*CRX) 5-325 MG TABLET 1 TAB PO ×2 (04:08→18:10)
--- NOTE | 2023-09-13 07:19 | PM.OBPNVD ---
OB - PN: Subj Subjective Date/time seen: 09/13/23 07:19 Patient comments: no complaints and pain well controlled baby status: doing well and nursing well OB - PN: Obj Data Labs 09/11/23 03:52 OB - PN A/P Plan day: 3 Plan: routine care and discharge home (possible dc today) Time Spent With Patient Time: Total time spent is greater than 50% in coordination of care (as documented) at patient's floor/unit and/or counseling patient: Exam Narrative: inc c/d/i : Bimanual exam- vagina & uterus: other (Uterus firm, nt @U)
[2023-09-13] MEDS: MULTIVIT/MIN/PREN/FOL AC/IRON TABLET 1 TAB PO (07:23)
[2023-09-13] MEDS: SIMETHICONE 80 MG TAB.CHEW PO ×3 (07:23→18:10)
[2023-09-13] MEDS: DOCUSATE SODIUM 100 MG CAPSULE PO ×2 (07:23→18:10)
[2023-09-13] MEDS: ACETAMINOPHEN 325 MG TABLET 650 MG PO ×3 (07:24→19:13)
[2023-09-13 07:35] VITALS: BP 114/68; PULSE 76; RESP 16; TEMP 36.5; O2SAT 98
--- NOTE | 2023-09-13 08:00 | PC.NURSE ---
late entry - 09/12/23 [id number] Mother verbalizes she is able to independently latch infant with appropriate positioning and alignment. She denies any nipple discomfort and is responsively . Infant is currently meeting outcomes for weight, output, jaundice, blood sugar and feeding frequencies of 8-12 times in 24 hours and is supplementing after per Dr's order. Mother declines any additional assistance or education at this time. Mother is encouraged to call for assistance if her doesn?t latch, pain with latching, questions or concerns. Mother voiced understanding of information shared along with the mom/baby guide for an additional resource. Reported to the Primary RN.
--- NOTE | 2023-09-13 13:04 | PC.NURSE ---
[id number] Consulted with mother concerning needs. Mother shared her ability to independently latch optimally without pain and feels her milk coming to full volume with fullness and engorgement. Mother is feeding appropriately for growth of infant and understands stimulating to eat if needed. has had appropriate feedings in the last 24 hours meets the outcomes for weight, output, blood sugar and jaundice at this time. Reinforced understanding of milk production, transition of milk, signs of adequate intake, transition of stool, prevention/relief of engorgement, plugged ducts, mastitis, responsive watching for feeding cues, the different methods of stimulating infant to breastfeed 1-3 hours after the start of the last feeding, community resources, and when to call a provider using the resource of the feeding sheet along with the mom and baby guide. Mother voiced understanding of the information shared, is confident to continue effectively her at home, when to call for assistance, denies any additional assistance or education at this time.
[2023-09-13 20:15] VITALS: BP 131/73; PULSE 87; RESP 16; TEMP 36.4; O2SAT 100
[2023-09-14] MEDS: ACETAMINOPHEN 325 MG TABLET 650 MG PO ×2 (01:10→07:25)
[2023-09-14] MEDS: IBUPROFEN 600 MG TABLET PO ×2 (01:10→07:25)
[2023-09-14] MEDS: HYDROcodone/acetaminophen (*CRX) 5-325 MG TABLET 1 TAB PO (04:10)
[2023-09-14] MEDS: SIMETHICONE 80 MG TAB.CHEW PO (07:25)
--- NOTE | 2023-09-14 07:41 | PM.OBPNVD ---
OB - PN: Subj Subjective Date/time seen: 09/14/23 07:41 Patient comments: no complaints baby status: doing well OB - PN: Obj Data Labs 09/11/23 03:52 OB - PN A/P Plan day: 4 Plan: routine care and discharge home Time Spent With Patient Time: Total time spent is greater than 50% in coordination of care (as documented) at patient's floor/unit and/or counseling patient: Exam Narrative: inc c/d/i : Bimanual exam- vagina & uterus: other (Uterus firm, nt @U)
[2023-09-14 07:50] VITALS: BP 106/58; PULSE 78; RESP 16; TEMP 36.6; O2SAT 98
[2023-09-14] MEDS: MULTIVIT/MIN/PREN/FOL AC/IRON TABLET 1 TAB PO (09:11)
[2023-09-14] MEDS: DOCUSATE SODIUM 100 MG CAPSULE PO (09:11)
--- NOTE | 2023-09-14 12:04 | PC.NURSE ---
1030 Patient viewed the discharge video Mother & Baby Care, The First Two Weeks . Patient was given the opportunity and encouraged to ask questions. Patient verbalized understanding of information shared and has been given the mother/baby guide for home reference.
[2023-09-15 09:38] VITALS: BP 111/70; PULSE 92; RESP 18; TEMP 36.8; O2SAT 98
== END 2023-09-14 12:23 | disposition home or self-care (01) | DRG 785 ==
LOC: ANHOBPP 20:17 → ANHOB2 09-10 18:12
PROVIDERS: Obstetrics & Gynecology; Admitting Provider Obstetrics & Gynecology Gynecology; PCP Family Medicine; Visit Provider Obstetrics & Gynecology Gynecology
PROC: 10D00Z1 Extraction of Products of Conception, Low, Open Approach (ICD-10-PCS; CPT 59514; principal; 2023-09-10 14:00)
DX: O76 Abnormality in fetal heart rate and rhythm complicating labor and delivery (principal); Z30.2 Encounter for sterilization; O69.81X0 Labor and delivery complicated by cord around neck, without compression, not applicable or unspecified; O24.424 Gestational diabetes mellitus in childbirth, insulin controlled; O99.284 Endocrine, nutritional and metabolic diseases complicating childbirth; E55.9 Vitamin D deficiency, unspecified; Z3A.36 36 weeks gestation of pregnancy; Z37.0 Single live birth
CPT/HCPCS: 36415; 59025; 76815; 76819; 76820; 82948; 85025; 85027; 86592; 86850; 86900; 86901; 87081; 88302; 88307; A9270; G0378; J0690; J1815; J1885; J2270; J2274; J2405; J2590; J7120

== ENCOUNTER 2024-06-10 11:17 | Emergency (ER) | payer BC, SELFPAY ==
[2024-06-10 11:31] VITALS: BP 130/78; PULSE 111; RESP 16; TEMP 37.3; O2SAT 98
--- NOTE | 2024-06-10 11:35 | ED.URI ---
HPI - URI/Sore Throat General Chief Complaint: Upper Respiratory Infection Stated Complaint: Fever/Congestion/Sore Throat Time Seen by Provider: 06/10/24 11:35 Source: patient Mode of arrival: ambulatory Limitations: no limitations History of Present Illness HPI Narrative: Emily is a 38-year-old female patient presenting to the clinic today with complaints of fever, nasal congestion, sore throat, headache, and cough x x2 days. She reports she has taken 2 at home COVID test on both test were negative. She is currently . Highest fever was 102. Denies any shortness of breath or chest pain. MD elicited complaint: fever, cough, sore throat, nasal congestion and other (Headache) Related Data Home Medications Medication Instructions Recorded Confirmed cholecalciferol (vitamin D3) 125 5,000 unit PO DAILY 05/10/19 06/10/24 mcg (5,000 unit) tablet (Vitamin D3) Allergies Allergy/AdvReac Type Severity Reaction Status Date / Time No Known Allergies Allergy Verified 06/10/24 11:34 Review of Systems Review of Systems: Pertinent positives per HPI. Patient denies any rash, visual changes, dizziness, shortness of breath, chest pain, palpitations, nausea, vomiting, diarrhea, constipation, abdominal pain, or any urinary issues. [facility] Past Medical History Medical History History of asthma History of gestational diabetes With both prior pregnancies Major depressive disorder in full remission (normal spontaneous vaginal delivery) x2 Scoliosis of lumbar spine Vitamin D deficiency Surgical History Surgical History [place] teeth extracted 01/2008 Family History Family History Mother Dementia Asthma Sibling Asthma Grandparent Heart attack Father Heart problem CAD - stents Grandparent Ovarian cancer Grandparent Acute rheumatic heart disease Other Breast cancer, Onset Age: 39 mother's sister Other Cervical cancer, Onset Age: 68 Other Hereditary hemochromatosis, Onset Age: 38 Social History Social History Social History: Love is , she has 2 boys. 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 Originally from [place]. Smoking status: Never smoker Second hand tobacco smoke exposure: No Alcohol intake: current Substance use: never Substance use type: does not use Do You Feel Safe in your Home?: Yes Lack of Transportation: No Lack of Food: Never True Current Housing: I Have Housing Concerned About Future Housing: No Difficulty Paying Gas/Electric Bills: No Difficulty Paying for Meds: No Currently Unemployed: No Education: Master's Degree or Higher Difficulty w/ Childcare or Family Care: No Living arrangements: with family Additional living arrangements comments: and 2 boys Occupation/Education: occupation Gender identity (if verbalized by the patient): Female Sexual Orientation (if Verbalized by the Patient): Straight or Heterosexual Spiritual care concerns: No Agree to blood products: Yes Comments At the time of my signature, I reviewed and agree with the nursing past medical, surgical, social, and family history. There is no relevant family history pertinent to the patient complaint. Exam Narrative: General: Well-developed, well nourished, in no apparent distress Head: Normocephalic, atraumatic Eyes: Pupils equally round and reactive to light bilaterally, EOM intact, sclera and conjunctive clear, no discharge, lids normal Ears: TMs intact and clear, ear canals clear, no drainage, grossly hearing normal. Nose: Nares patent, clear nasal discharge, no inflammation, no sinus tenderness. Mouth: Oral pharynx red without lesions or masses, good dentition, MMM. Neck: Supple, trachea midline, no enlargement of anterior or posterior cervical nodes, no thyroid masses or goiter palpable. Cardio: Regular rate and rhythm, s1 and s2 normal, no murmur appreciated. Resp: Clear to auscultation bilaterally, no rhonchi, rales, wheezing or rubs Course Course Emergency Course: Portions of this record may have been created with voice recognition software. Level of Care: Express Care Visit Vital Signs Vital signs: Vital Signs Temperature 37.3 C 06/10/24 11:31 Pulse Rate 111 H 06/10/24 11:31 Respiratory Rate 16 06/10/24 11:31 Blood Pressure 130/78 06/10/24 11:31 Pulse Oximetry 98 06/10/24 11:31 Temperature 37.3 C 06/10/24 11:31 Pulse Rate 111 H 06/10/24 11:31 Respiratory Rate 16 06/10/24 11:31 Blood Pressure 130/78 06/10/24 11:31 Pulse Oximetry 98 06/10/24 11:31 Vital signs reviewed MDM - URI/Sore Throat MDM Narrative Medical decision making narrative: At the time of visit patient is resting comfortably on the exam table. Patient appears to be nontoxic. Labs: COVID, influenza, and strep test were all performed. We will send strep for culture is a test was negative. COVID was positive and influenza testing was negative. Plan: Patient has COVID-19. Supportive measures were discussed with the patient and they voiced understanding discharge instructions and agrees to treatment plan. Return precautions reviewed Differential Diagnosis Differential diagnosis: Likely sinusitis, viral infection, influenza and pharyngitis Discharge Plan Discharge Clinical Impression: COVID-19 Patient Disposition: Home, Self-Care Condition: Stable Instructions: Antibiotic Form, How to Recover from COVID-19 at Home (ED) Additional Instructions: COVID testing is positive in the clinic today. Influenza and strep test were negative. We will send strep for culture if this comes back positive we will contact him place you on antibiotics at that time. Increase fluids and stay well hydrated Tylenol/motrin for pain/fever Flonase and OTC antihistamines as directed Vicks vapor rub to open sinuses Sinus rinses for congestion Cepacol spray, cough drops, throat lozenges, warm tea with honey/lemon, gargle salt water to soothe throat BRAT diet for diarrhea Clear liquids x 24 hours then advance as tolerated for nausea/vomiting Go to the ED if you develop a worsening in your condition- high fever not controlled by Tylenol or Motrin, dehydration, weakness, lethargy, shortness of breath, or chest pain. Follow up with your PCP in 3-5 days if symptoms persist. Prescriptions: No Action cholecalciferol (vitamin D3) [Vitamin D3] 5,000 unit Tablet 5,000 unit PO DAILY Follow-up/Referrals: Disha Goldstein MD [Primary Care Provider] - Time of Disposition: 11:46 Quality NIHSS Nursing Documentation ED NIHSS nursing documentation: reviewed/agree
[2024-06-10 11:38] LABS: EDCOVIDSCREEN Positive (Negative)
[2024-06-10 11:45] LABS: EDINFLUASCREEN Negative (Negative); EDINFLUBSCREEN Negative (Negative); EDSTREPNEGPOS1 Negative (Negative)
== END 2024-06-10 11:48 | disposition home or self-care (01) ==
PROVIDERS: Emergency Provider Nurse Practitioner Family; PCP Family Medicine
DX: U07.1 COVID-19 (principal); J45.909 Unspecified asthma, uncomplicated; M41.9 Scoliosis, unspecified; E55.9 Vitamin D deficiency, unspecified
CPT/HCPCS: 87081; 87426; 87804; 87880; 99213; G0463